=== PATIENT | female | born 1985 | race African-American/Black ===

== ENCOUNTER 2016-07-04 11:48 | Emergency (ER) | payer SELFPAY ==
[2016-07-04] MEDS ORDERED: IBUPROFEN 600 MG TABLET ONE (14:15)
== END 2016-07-04 17:00 | disposition home or self-care (01) ==
LOC: ER 11:48
DX: S66.919A Strain of unspecified muscle, fascia and tendon at wrist and hand level, unspecified hand, initial encounter (principal); W22.09XA Striking against other stationary object, initial encounter
CPT/HCPCS: 99283

== ENCOUNTER 2016-08-29 19:41 | Emergency (ER) | payer SELFPAY ==
--- NOTE | 2016-08-29 22:10 | ER Document Report ---
ED General - General Information source: Patient TRAVEL OUTSIDE OF THE [place] IN LAST 30 DAYS: No - HPI Onset: Yesterday Associated symptoms: Other - see above - General Chief Complaint: Cold Symptoms Stated Complaint: COUGH/CHILLS Time Seen by Provider: 08/29/16 21:53 Notes: Patient is a 31 year old female who presents to the ED with complaints of coughing, sneezing, nasal congestion and fever with onset yesterday. Patient states she felt lightheaded earlier but no longer feels that way. Patient states she was around both her son and daughter who were sick with similar symptoms. Patient denies nausea, vomiting, diarrhea, dysuria or hematuria, ear pain or sore throat. Patient states her throat was dry and itchy. Patient denies any chance of . Patient states she has not taken anything for her fever. Patient is currently . No other concerns or complaints at this time. (KARMEN GATES) - Related Data Allergies/Adverse Reactions: latex [Latex] Allergy (Severe, Verified 02/10/16 02:00) hives & swelling Past Medical History - General Information source: Patient - Social History Smoking Status: Unknown if Ever Smoked Family History: Reviewed & Not Pertinent Patient has suicidal ideation: No Patient has homicidal ideation: No - Past Medical History Cardiac Medical History: Reports: Hx Hypertension Renal/ Medical History: Denies: Hx Peritoneal Dialysis - Immunizations Immunizations up to date: Yes Hx Diphtheria, Pertussis, Tetanus Vaccination: Yes Review of Systems - Review of Systems Constitutional: See HPI, Fever EENT: See HPI, Nose congestion. denies: Ear pain, Throat pain - dry and itchy throat Cardiovascular: No symptoms reported Respiratory: See HPI, Cough Gastrointestinal: See HPI. denies: Diarrhea, Nausea, Vomiting Genitourinary: See HPI. denies: Dysuria, Hematuria Female Genitourinary: No symptoms reported Musculoskeletal: No symptoms reported Skin: No symptoms reported Hematologic/Lymphatic: No symptoms reported Neurological/Psychological: No symptoms reported Physical Exam - General General appearance: Appears well, Alert In distress: None - HEENT Head: Normocephalic, Atraumatic Eyes: Normal Extraocular movements intact: Yes Pupils: PERRL Ears: Normal Tympanic membrane: Normal Pharynx: Normal - Respiratory Respiratory status: No respiratory distress Breath sounds: Normal - Cardiovascular Rhythm: Regular Heart sounds: Normal auscultation Murmur: Yes - slight - Abdominal Inspection: Normal Distension: No distension - Back Back: Normal - Extremities General upper extremity: Normal inspection, Normal ROM General lower extremity: Normal inspection, Normal ROM - Neurological Neuro grossly intact: Yes Cognition: Normal Orientation: AAOx4 Jody Coma Scale Eye Opening: Spontaneous [place] Coma Scale Verbal: Oriented [place] Coma Scale Motor: Obeys Commands [place] Coma Scale Total: 15 Speech: Normal - Psychological Associated symptoms: Normal affect, Normal mood - Skin Skin Temperature: Warm Skin Moisture: Dry Skin Color: Normal Course - Re-evaluation Re-evalutation: 08/30/16 05:10 Patient with cough sneezing and nasal congestion presents well-appearing nontoxic in no acute distress normal HEENT labs vitals are stable. Patient with upper respiratory illness will discharge supportive care follow-up primary care physician and discussed reasons for ED return (MELODIE ASHTON) - Vital Signs Vital signs: Temp Pulse Resp BP Pulse Ox 100.2 F 110 H 18 130/72 H 100 08/29/16 23:03 08/29/16 23:03 08/29/16 23:03 08/29/16 23:03 08/29/16 23:03 Discharge - Discharge Clinical Impression: Upper respiratory infection Qualifiers: URI type: unspecified viral URI Qualified Code(s): J06.9 - Acute upper respiratory infection, unspecified Condition: Stable Disposition: HOME, SELF-CARE Instructions: Upper Respiratory Illness ([facility]) Additional Instructions: Upper Respiratory Illness You have a viral infection of the respiratory passages -- a "cold." This common infection causes nasal congestion, drainage, and often sore throat and cough. It is caused by a virus and is highly contagious. The disease usually lasts a week or more, though the worst symptoms are usually over in 3 or 4 days. There is no "cure" for the viral infection -- it must run its course. If there is a complication, such as bacterial infection in the nose, sinuses, middle ear, or bronchial tubes, antibiotics may be required, but antibiotics won 't affect the virus. If you smoke, you should STOP!! Drink plenty of fluids. A humidifier may help. An expectorant medication or decongestant may make you more comfortable. Use acetaminophen or ibuprofen for fever or aches. See the doctor if fever persists over two or three days, if there is any significant worsening of your symptoms, or if you simply fail to improve as expected. Prescriptions: Mometasone Furoate [Nasonex] 1 spray NS Q12 #1 spray.pump Referrals: SHAUNNA TURNER MD [ACTIVE STAFF] - Follow up in 3-5 days (Call for an appointment to be seen in follow-up in 3-5 days return for increased worsening or new symptoms) Scribe Attestation: 08/29/16 22:22 I personally performed the services described in the documentation reviewed the documentation recorded by my scribe in my presence and it accurately and completely records my words and actions (MELODIE ASHTON) Scribe Documentation - Scribe Written by Maykel:: maykel Rizzo, 08/29/2016, 2219 acting as scribe for :: Calvin
[2016-08-29 23:05] VITALS: BP 130/72
[2016-08-29] MEDS ORDERED: IBUPROFEN 800 MG TABLET PO ONE (23:21)
== END 2016-08-29 23:25 | disposition home or self-care (01) ==
LOC: ER 19:41
DX: J06.9 Acute upper respiratory infection, unspecified (principal); B97.89 Other viral agents as the cause of diseases classified elsewhere; R05 Cough; R06.7 Sneezing; R09.81 Nasal congestion; R50.9 Fever, unspecified; R09.89 Other specified symptoms and signs involving the circulatory and respiratory systems; Z91.040 Latex allergy status; I10 Essential (primary) hypertension
CPT/HCPCS: 99283

== ENCOUNTER 2018-07-04 01:42 | Emergency (ER) | payer OTHER ==
[2018-07-04] MEDS ORDERED: LORAZEPAM 1 MG TABLET PO ONE (02:59)
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
[2018-07-04 03:38] LABS: ABSOLUTE EOSINOPHILS # (AUTO) 0.1 10^3/uL (0.0-0.6); ABSOLUTE LYMPHOCYTES (AUTO) 2.4 10^3/uL (0.5-4.7); ABSOLUTE MONOCYTES (AUTO) 0.3 10^3/uL (0.1-1.4); ABSOLUTE NEUT (AUTO) 2.2 10^3/uL (1.7-8.2); BASOPHILS % (AUTO) 0.8 % (0-2); EOSINOPHILS % (AUTO) 1.1 % (0-6); HEMATOCRIT 36.3 % (36.0-47.0); MEAN CORPUSCULAR HEMOGLOBIN 28.9 pg (27.0-33.4); MEAN CORPUSCULAR HGB CONC 32.9 g/dL (32.0-36.0); MEAN CORPUSCULAR VOLUME 88 fl (80-97); MONOCYTES % (AUTO) 5.5 % (3-13); PLATELET COUNT 325 10^3/uL (150-450); RED BLOOD COUNT 4.14 10^6/uL (3.72-5.28); RED CELL DISTRIBUTION WIDTH 14.6 % (11.5-14.0); SEGMENTED NEUTROPHILS % (AUTO) 44.6 % (42-78); TOTAL CELLS COUNTED % (AUTO) 100 %; WHITE BLOOD COUNT 4.9 10^3/uL (4.0-10.5)
[2018-07-04 04:05] LABS: ALANINE AMINOTRANSFERASE 19 U/L (9-52); ALBUMIN 4.5 g/dL (3.5-5.0); ALKALINE PHOSPHATASE 62 U/L (38-126); ANION GAP 13 (5-19); ASPARTATE AMINO TRANSFERASE 27 U/L (14-36); BILIRUBIN,DIRECT 0.2 mg/dL (0.0-0.4); BILIRUBIN,TOTAL 0.3 mg/dL (0.2-1.3); BLOOD UREA NITROGEN 10 mg/dL (7-20); CALCIUM 9.6 mg/dL (8.4-10.2); CARBON DIOXIDE 23 mmol/L (22-30); CHLORIDE 110 mmol/L (98-107); GLUCOSE 101 mg/dL (75-110); POTASSIUM 4.8 mmol/L (3.6-5.0); SODIUM 145.8 mmol/L (137-145); TOTAL PROTEIN 8.2 g/dL (6.3-8.2)
[2018-07-04] MEDS ORDERED: PROMETHAZINE HCL 25 MG TABLET PO ONE (04:52)
[2018-07-04] MEDS ORDERED: LEVONORGESTREL 1.5 MG TABLET (1 TAB/ER-USE) PO ONE (04:52)
[2018-07-04] MEDS ORDERED: AZITHROMYCIN 1 GM SUSP PACKET PO ONE (04:52)
[2018-07-04] MEDS ORDERED: CEFTRIAXONE INJ 250 MG VIAL IM ONE (04:53)
[2018-07-04] MEDS ORDERED: METRONIDAZOLE 500 MG TABLET PO ONE (04:53)
[2018-07-04] MEDS ORDERED: LIDOCAINE 1% INJ-PF (10 MG/ML) 30 ML SDV ONE (05:06)
[2018-07-04 05:15] LABS: RBCS (WET MOUNT) FEW RBCS SEEN; T.VAGINALIS (WET MOUNT) NO TRICHOMONAS SEEN; WBCS (WET MOUNT) 2+ WBCS SEEN; YEAST (WET MOUNT) NO YEAST SEEN
[2018-07-04] MEDS ORDERED: ONDANSETRON 4 MG TAB.RAPDIS PO ONE (05:32)
[2018-07-04] MEDS ORDERED: ONDANSETRON 4 MG TAB.RAPDIS ONE (05:33)
[2018-07-04 06:39] LABS: CHLAM PCR DETECTED (NOT DETECT); GON PCR NOT DETECTED (NOT DETECT)
--- NOTE | 2018-07-04 06:58 | RADIOLOGY REPORT (SQ) ---
EXAM DESCRIPTION: XR HAND 3 OR MORE VIEWS right COMPLETED DATE/TME: 07/04/2018 00:00 CLINICAL HISTORY: 33 years, Female, pain and swelling COMPARISON: None. FINDINGS: No fracture or dislocation. Soft tissues are unremarkable. IMPRESSION: No acute abnormality.
[2018-07-04 07:00] VITALS: BP 121/65
[2018-07-05 06:38] LABS: HEPATITIS A AB IGM Negative (Negative); HEPATITIS B CORE AB IGM Negative (Negative); HEPATITS B SURFACE ANTIGEN Negative (Negative)
[2018-07-06 19:11] LABS: HEPATITIS C VIRUS ANTIBODY <0.1 s/co ratio (0.0-0.9)
== END 2018-07-04 07:06 | disposition home or self-care (01) ==
LOC: ER 01:42
DX: T74.21XA Adult sexual abuse, confirmed, initial encounter (principal); K62.89 Other specified diseases of anus and rectum; A74.9 Chlamydial infection, unspecified; M79.641 Pain in right hand; X58.XXXA Exposure to other specified factors, initial encounter; F17.210 Nicotine dependence, cigarettes, uncomplicated
CPT/HCPCS: 99406; 99285; 96372; 36415; 87210; 85025; 86592; 80053; 86701; 87491; 87591; 80074; 73130; A9270; S0119; Q0144; J0696

== ENCOUNTER 2018-09-02 12:48 | Emergency (ER) | payer SELFPAY ==
[2018-09-02 12:56] VITALS: BP 127/61
[2018-09-02] MEDS ORDERED: IBUPROFEN 800 MG TABLET PO ONE (13:47)
[2018-09-02] MEDS ORDERED: ONDANSETRON 4 MG TAB.RAPDIS PO ONE (13:47)
--- NOTE | 2018-09-02 13:52 | ER Document Report ---
ED General - General Chief Complaint: Headache Stated Complaint: HEADACHE, DIZZY Time Seen by Provider: 09/02/18 13:43 Mode of Arrival: Ambulatory Information source: Patient Notes: This 33-year-old female presents emergency department with complaints of headache dizziness that comes and goes and vomiting once. Patient reports she woke up at midnight had a headache took something for it then went back to bed. When she woke up this morning to go to work at the [employer] she still had a he adache felt like dizziness. When she were arrived at work she vomited one time. Patient reports she still has a frontal headache. Denies fever diarrhea. Reports she lives at home with her kids and they are not sick. Denies history of migraines. TRAVEL OUTSIDE OF THE [place] IN LAST 30 DAYS: No - HPI Onset: This morning Onset/Duration: Sudden Quality of pain: Pressure Pain Level: 4 Associated symptoms: Vomiting Exacerbated by: Denies Relieved by: Denies Similar symptoms previously: Yes Recently seen / treated by doctor: No - Related Data Allergies/Adverse Reactions: latex [Latex] Allergy (Severe, Verified 09/02/18 13:41) hives & swelling Past Medical History - General Information source: Patient Last Menstrual Period: july - Social History Smoking Status: Current Some Day Smoker Cigarette use (# per day): Yes Chew tobacco use (# tins/day): No Frequency of alcohol use: None Drug Abuse: None Occupation: [employer] Lives with: Family Family History: Reviewed & Not Pertinent Patient has suicidal ideation: No Patient has homicidal ideation: No - Past Medical History Cardiac Medical History: Reports: Hx Hypertension Renal/ Medical History: Denies: Hx Peritoneal Dialysis Surgical Hx: Negative - Immunizations Immunizations up to date: Yes Hx Diphtheria, Pertussis, Tetanus Vaccination: Yes Review of Systems - Review of Systems Notes: Review HPI for review of systems., All other systems negative Physical Exam - Vital signs Vitals: Temp Pulse Resp BP Pulse Ox 97.9 F 96 16 127/61 H 100 09/02/18 12:55 09/02/18 12:55 09/02/18 12:55 09/02/18 12:55 09/02/18 12:55 - Notes Notes: PHYSICAL EXAMINATION: GENERAL: Well-appearing and in no acute distress HEAD: Atraumatic, normocephalic. EYES: Pupils equal round extraocular movements intact, sclera anicteric, conjunctiva are normal. ENT: nares patent, . Moist mucous membranes. NECK: Normal range of motion, supple without lymphadenopathy LUNGS: CTAB and equal. No wheezes rales or rhonchi. HEART: Regular rate and rhythm without murmurs ABDOMEN: Soft, no tenderness. No guarding, no rebound EXTREMITIES: Normal range of motion, no pitting edema. No cyanosis. NEUROLOGICAL: Cranial nerves grossly intact. Normal sensory/motor exams. PSYCH: Normal mood, normal affect. SKIN: Warm, Dry, normal turgor, no rashes or lesions noted Course - Re-evaluation Re-evalutation: 09/02/18 15:14 Labs unremarkable UA shows moderate leukocytes no blood. Patient will be treated for UTI with Macrobid. She was instructed on plan of care medications. Instructed follow-up with her primary care for recheck. Dictation of this chart was performed using voice recognition software; therefore, there may be some unintended grammatical errors. 09/02/18 14:11 09/02/18 14:11 MCV 88 fl (80-97) 09/02/18 14:11 MCH 28.7 pg (27.0-33.4) 09/02/18 14:11 MCHC 32.5 g/dL (32.0-36.0) 09/02/18 14:11 RDW 16.0 % (11.5-14.0) H 09/02/18 14:11 Seg Neutrophils % 53.2 % (42-78) 09/02/18 14:11 Lymphocytes % 38.9 % (13-45) 09/02/18 14:11 Monocytes % 5.9 % (3-13) 09/02/18 14:11 Eosinophils % 0.9 % (0-6) 09/02/18 14:11 Basophils % 1.1 % (0-2) 09/02/18 14:11 Absolute Neutrophils 3.2 10^3/uL (1.7-8.2) 09/02/18 14:11 Absolute Lymphocytes 2.3 10^3/uL (0.5-4.7) 09/02/18 14:11 Absolute Monocytes 0.4 10^3/uL (0.1-1.4) 09/02/18 14:11 Absolute Eosinophils 0.1 10^3/uL (0.0-0.6) 09/02/18 14:11 Absolute Basophils 0.1 10^3/uL (0.0-0.2) 09/02/18 14:11 Chloride 105 mmol/L (98-107) 09/02/18 14:11 Carbon Dioxide 26 mmol/L (22-30) 09/02/18 14:11 Anion Gap 8 (5-19) 09/02/18 14:11 Est GFR ( Amer) > 60 (>60) 09/02/18 14:11 Est GFR (Non-Af Amer) > 60 (>60) 09/02/18 14:11 Glucose 84 mg/dL (75-110) 09/02/18 14:11 Calcium 9.0 mg/dL (8.4-10.2) 09/02/18 14:11 Total Bilirubin 0.5 mg/dL (0.2-1.3) 09/02/18 14:11 AST 29 U/L (14-36) 09/02/18 14:11 ALT 23 U/L (9-52) 09/02/18 14:11 Alkaline Phosphatase 60 U/L (38-126) 09/02/18 14:11 Total Protein 7.7 g/dL (6.3-8.2) 09/02/18 14:11 Albumin 4.3 g/dL (3.5-5.0) 09/02/18 14:11 Serum HCG, Qual NEGATIVE (NEGATIVE) 09/02/18 14:11 Urine Color YELLOW 09/02/18 14:11 Urine Appearance SLIGHTLY-CLOUDY 09/02/18 14:11 Urine pH 6.0 (5.0-9.0) 09/02/18 14:11 Ur Specific [place] 1.017 09/02/18 14:11 Urine Protein NEGATIVE mg/dL (NEGATIVE) 09/02/18 14:11 Urine Glucose (UA) NEGATIVE mg/dL (NEGATIVE) 09/02/18 14:11 Urine Ketones NEGATIVE mg/dL (NEGATIVE) 09/02/18 14:11 Urine Blood NEGATIVE (NEGATIVE) 09/02/18 14:11 Urine Nitrite NEGATIVE (NEGATIVE) 09/02/18 14:11 Ur Leukocyte Esterase MODERATE (NEGATIVE) H 09/02/18 14:11 Urine WBC (Auto) 12 /HPF 09/02/18 14:11 Urine RBC (Auto) 2 /HPF 09/02/18 14:11 09/02/18 16:07 - Vital Signs Vital signs: Temp Pulse Resp BP Pulse Ox 97.9 F 96 16 127/61 H 100 09/02/18 12:55 09/02/18 12:55 09/02/18 12:55 09/02/18 12:55 09/02/18 12:55 - Laboratory Result Diagrams: 09/02/18 14:11 09/02/18 14:11 Laboratory results interpreted by me: 09/02/18 09/02/18 14:11 14:11 Hgb 11.8 L RDW 16.0 H Urine Urobilinogen 2.0 H Ur Leukocyte Esterase MODERATE H Discharge - Discharge Clinical Impression: Headache Qualifiers: Headache type: unspecified Headache chronicity pattern: unspecified pattern Nausea & vomiting Qualifiers: Vomiting type: unspecified Vomiting Intractability: non-intractable Qualified Code(s): R11.2 - Nausea with vomiting, unspecified UTI (urinary tract infection) Qualifiers: Urinary tract infection type: site unspecified Hematuria presence: without hematuria Qualified Code(s): N39.0 - Urinary tract infection, site not specified Condition: Stable Disposition: HOME, SELF-CARE Instructions: Antinausea Medication ([facility]), Nitrofurantoin ([facility]), Urinary Tract Infection ([facility]), Vomiting ([facility]) Additional Instructions: *You have been evaluated for headache, vomiting, UTI *Take medication as prescribed *Push fluids *Monitor your temperature take Tylenol Motrin as indicated *Follow up with your primary care provider *Plan urine recheck in one week *Return to ED for worsening condition, changes, needs Prescriptions: Nitrofurantoin/Nitrofuran Mac [Macrobid 100 mg Capsule] 100 mg PO BID #20 capsule Forms: Return to Work
[2018-09-02 14:25] LABS: ABSOLUTE BASOPHILS # (AUTO) 0.1 10^3/uL (0.0-0.2); ABSOLUTE EOSINOPHILS # (AUTO) 0.1 10^3/uL (0.0-0.6); ABSOLUTE LYMPHOCYTES (AUTO) 2.3 10^3/uL (0.5-4.7); ABSOLUTE MONOCYTES (AUTO) 0.4 10^3/uL (0.1-1.4); ABSOLUTE NEUT (AUTO) 3.2 10^3/uL (1.7-8.2); BASOPHILS % (AUTO) 1.1 % (0-2); EOSINOPHILS % (AUTO) 0.9 % (0-6); HEMATOCRIT 36.4 % (36.0-47.0); HEMOGLOBIN 11.8 g/dL (12.0-15.5); LYMPHOCYTES % (AUTO) 38.9 % (13-45); MEAN CORPUSCULAR HEMOGLOBIN 28.7 pg (27.0-33.4); MEAN CORPUSCULAR HGB CONC 32.5 g/dL (32.0-36.0); MEAN CORPUSCULAR VOLUME 88 fl (80-97); MONOCYTES % (AUTO) 5.9 % (3-13); PLATELET COUNT 259 10^3/uL (150-450); RED BLOOD COUNT 4.13 10^6/uL (3.72-5.28); SEGMENTED NEUTROPHILS % (AUTO) 53.2 % (42-78); TOTAL CELLS COUNTED % (AUTO) 100 %
[2018-09-02 14:28] LABS: APPEARANCE,URINE SLIGHTLY-CLOUDY; BILIRUBIN,URINE NEGATIVE (NEGATIVE); COLOR,URINE YELLOW; GLUCOSE, URINE NEGATIVE (NEGATIVE); KETONES,URINE NEGATIVE (NEGATIVE); LEUKOCYTE ESTERASE,URINE MODERATE (NEGATIVE); NITRITE,URINE NEGATIVE (NEGATIVE); PROTEIN,URINE NEGATIVE (NEGATIVE); URINE SPECIFIC GRAVITY 1.017
[2018-09-02 14:51] LABS: ALANINE AMINOTRANSFERASE 23 U/L (9-52); ALBUMIN 4.3 g/dL (3.5-5.0); ALKALINE PHOSPHATASE 60 U/L (38-126); ANION GAP 8 (5-19); ASPARTATE AMINO TRANSFERASE 29 U/L (14-36); BILIRUBIN,DIRECT 0.2 mg/dL (0.0-0.4); BILIRUBIN,TOTAL 0.5 mg/dL (0.2-1.3); BLOOD UREA NITROGEN 12 mg/dL (7-20); CARBON DIOXIDE 26 mmol/L (22-30); CHLORIDE 105 mmol/L (98-107); GLUCOSE 84 mg/dL (75-110); POTASSIUM 3.8 mmol/L (3.6-5.0); SODIUM 138.7 mmol/L (137-145); TOTAL PROTEIN 7.7 g/dL (6.3-8.2)
== END 2018-09-02 15:30 | disposition home or self-care (01) ==
LOC: ER 12:48
DX: R51 Headache (principal); N39.0 Urinary tract infection, site not specified; R42 Dizziness and giddiness; I10 Essential (primary) hypertension; F17.210 Nicotine dependence, cigarettes, uncomplicated; R11.2 Nausea with vomiting, unspecified; Z91.040 Latex allergy status
CPT/HCPCS: 99284; 36415; 84703; 85025; 80053; 81001; S0119

== ENCOUNTER 2019-01-08 18:55 | Emergency (ER) | payer BC ==
--- NOTE | 2019-01-08 19:36 | ER Document Report ---
ED Medical Screen (RME) - General Chief Complaint: Abdominal Pain Stated Complaint: HEADACHE,ABDOMINAL PAIN,NAUSEA Time Seen by Provider: 01/08/19 19:35 TRAVEL OUTSIDE OF THE [place] IN LAST 30 DAYS: No - HPI Notes: 01/08/19 19:35 Patient is a 33-year-old female who presents complaining of lower pelvic pain, cramping, vaginal spotting, nausea and vomiting over the past couple days. She is otherwise urinating normally and having normal bowel movements. No fever, chest pain, shortness of breath. I have treated and performed a rapid initial assessment of this patient. A comprehensive ED assessment and evaluation of the patient, analysis of test results and completion of medical decision making process will be conducted by additional ED providers. PHYSICAL EXAMINATION: GENERAL: Well-appearing, well-nourished and in no acute distress. A&Ox4. Answers questions appropriately. Abdomen: Limited exam of triage, but does have some mild tenderness to lower pelvic area. - Related Data Allergies/Adverse Reactions: latex [Latex] Allergy (Severe, Verified 01/08/19 19:34) hives & swelling statins Allergy (Mild, Uncoded 01/08/19 19:34) joint pain Past Medical History - Past Medical History Cardiac Medical History: Reports: Hx Hypertension Renal/ Medical History: Denies: Hx Peritoneal Dialysis - Immunizations Immunizations up to date: Yes Hx Diphtheria, Pertussis, Tetanus Vaccination: Yes Physical Exam - Vital signs Vitals: Temp Pulse Resp BP Pulse Ox 98.1 F 91 16 143/70 H 100 01/08/19 19:05 01/08/19 19:05 01/08/19 19:05 01/08/19 19:05 01/08/19 19:05 Course - Vital Signs Vital signs: Temp Pulse Resp BP Pulse Ox 98.1 F 91 16 143/70 H 100 01/08/19 19:05 01/08/19 19:05 01/08/19 19:05 01/08/19 19:05 01/08/19 19:05
[2019-01-08] MEDS ORDERED: ONDANSETRON HCL INJ/PF 4 MG/2 ML SDV IV ONE (19:37)
[2019-01-08] MEDS ORDERED: NORMAL SALINE 1000 ML 1,000 ML IV ONE (19:37)
[2019-01-08 20:24] LABS: ABSOLUTE BASOPHILS # (AUTO) 0.1 10^3/uL (0.0-0.2); ABSOLUTE EOSINOPHILS # (AUTO) 0.1 10^3/uL (0.0-0.6); ABSOLUTE LYMPHOCYTES (AUTO) 2.2 10^3/uL (0.5-4.7); ABSOLUTE MONOCYTES (AUTO) 0.4 10^3/uL (0.1-1.4); ABSOLUTE NEUT (AUTO) 3.2 10^3/uL (1.7-8.2); BASOPHILS % (AUTO) 0.9 % (0-2); HEMATOCRIT 34.1 % (36.0-47.0); HEMOGLOBIN 11.6 g/dL (12.0-15.5); LYMPHOCYTES % (AUTO) 37.2 % (13-45); MEAN CORPUSCULAR HEMOGLOBIN 30.2 pg (27.0-33.4); MEAN CORPUSCULAR HGB CONC 33.9 g/dL (32.0-36.0); MEAN CORPUSCULAR VOLUME 89 fl (80-97); MONOCYTES % (AUTO) 7.5 % (3-13); PLATELET COUNT 346 10^3/uL (150-450); RED BLOOD COUNT 3.83 10^6/uL (3.72-5.28); RED CELL DISTRIBUTION WIDTH 15.3 % (11.5-14.0); SEGMENTED NEUTROPHILS % (AUTO) 53.4 % (42-78); TOTAL CELLS COUNTED % (AUTO) 100 %
[2019-01-08 20:41] LABS: ALBUMIN 4.4 g/dL (3.5-5.0); ALKALINE PHOSPHATASE 50 U/L (38-126); ANION GAP 10 (5-19); ASPARTATE AMINO TRANSFERASE 20 U/L (14-36); BILIRUBIN,DIRECT 0.1 mg/dL (0.0-0.4); BILIRUBIN,TOTAL 0.3 mg/dL (0.2-1.3); BLOOD UREA NITROGEN 11 mg/dL (7-20); CALCIUM 9.5 mg/dL (8.4-10.2); CARBON DIOXIDE 26 mmol/L (22-30); CHLORIDE 102 mmol/L (98-107); GLUCOSE 93 mg/dL (75-110); POTASSIUM 3.9 mmol/L (3.6-5.0); TOTAL PROTEIN 7.8 g/dL (6.3-8.2)
[2019-01-08 21:00] LABS: APPEARANCE,URINE CLEAR; BILIRUBIN,URINE NEGATIVE (NEGATIVE); COLOR,URINE YELLOW; GLUCOSE, URINE NEGATIVE (NEGATIVE); KETONES,URINE NEGATIVE (NEGATIVE); PROTEIN,URINE NEGATIVE (NEGATIVE); URINE SPECIFIC GRAVITY 1.017
--- NOTE | 2019-01-08 21:29 | RADIOLOGY REPORT (SQ) ---
US PELVIS EXAM DATE: 01/08/2019 7:36 PM NURSE CARE MANAGER HISTORY: Early . Pelvic pain. COMPARISON: None. TECHNIQUE: Grayscale, color Doppler, and spectral Doppler ultrasound images of the pelvis were obtained. FINDINGS: There is an intrauterine gestational sac and yolk sac without pole seen. There is a possible adjacent subchorionic hematoma. Both ovaries are normal in size and contain normal follicles, with the right ovary measuring 4.1 cm and the left ovary measuring 3.3 cm. There is a 2.5 cm right ovarian anechoic cyst. Normal color Doppler blood flow is seen in both ovaries. IMPRESSION: 1. Intrauterine gestational sac and yolk sac. No pole is seen at this time. Findings may represent early . Recommend short-term follow-up ultrasound imaging. 2. Small adjacent subchorionic hemorrhage; attention on follow-up imaging is suggested.
--- NOTE | 2019-01-08 21:31 | ER Document Report ---
ED GI/ - General Chief Complaint: Abdominal Pain Stated Complaint: HEADACHE,ABDOMINAL PAIN,NAUSEA Time Seen by Provider: 01/08/19 19:35 Primary Care Provider: [facility] [Provider Group] - Follow up in 3-5 days [facility] [NO LOCAL MD] - Follow up in 3-5 days Notes: Patient is a 33-year-old female that comes emergency department for chief complaint of 2 to 3 days of lower pelvic pain on both sides, cramping, occasional vaginal spotting, nausea, and she vomited once earlier today. She also reports a whitish vaginal discharge. Patient denies dysuria, fever, flank pain, abnormal bowel movements. She denies any other complaints. LMP about a month ago. TRAVEL OUTSIDE OF THE [place] IN LAST 30 DAYS: No - Related Data Allergies/Adverse Reactions: latex [Latex] Allergy (Severe, Verified 01/08/19 19:34) hives & swelling Past Medical History - General Information source: Patient - Social History Smoking Status: Current Every Day Smoker Frequency of alcohol use: None Drug Abuse: None Lives with: Family Family History: Reviewed & Not Pertinent Patient has suicidal ideation: No Patient has homicidal ideation: No - Past Medical History Cardiac Medical History: Reports: Hx Hypertension Renal/ Medical History: Denies: Hx Peritoneal Dialysis Surgical Hx: Negative - Immunizations Immunizations up to date: Yes Hx Diphtheria, Pertussis, Tetanus Vaccination: Yes Review of Systems - Review of Systems Constitutional: No symptoms reported EENT: No symptoms reported Cardiovascular: No symptoms reported Respiratory: No symptoms reported Gastrointestinal: See HPI Genitourinary: See HPI Female Genitourinary: See HPI Musculoskeletal: No symptoms reported Skin: No symptoms reported Hematologic/Lymphatic: No symptoms reported Neurological/Psychological: No symptoms reported Physical Exam - Vital signs Vitals: Temp Pulse Resp BP Pulse Ox 98.1 F 91 16 143/70 H 100 01/08/19 19:05 01/08/19 19:05 01/08/19 19:05 01/08/19 19:05 01/08/19 19:05 - Notes Notes: GENERAL: Alert, interacts well. No acute distress. HEAD: Normocephalic, atraumatic. EYES: Pupils equal, round, and reactive to light. Extraocular movements intact. ENT: Oral mucosa moist, tongue midline. Oropharynx unremarkable. Airway patent. NECK: Full range of motion. Supple. Trachea midline. LUNGS: Clear to auscultation bilaterally, no wheezes, rales, or rhonchi. No respiratory distress. HEART: Regular rate and rhythm. No murmur ABDOMEN: There is mild generalized lower abdominal tenderness, upper abdomen benign, no guarding or rigidity. GENITOURINARY: External exam unremarkable, speculum exam shows no current bleeding but does show a moderate amount of vaginal discharge. No noted cervic al motion tenderness. Exam performed with Kaye CROWLEY at bedside. EXTREMITIES: Moves all 4 extremities spontaneously. No edema, normal radial and dorsalis pedis pulses bilaterally. No cyanosis. BACK: no cervical, thoracic, lumbar midline tenderness. No saddle anesthesia, normal distal neurovascular exam. Moves all extremities in full range of motion. NEUROLOGICAL: Alert and oriented x3. Normal speech. Cranial nerves II through XII grossly intact. PSYCH: Normal affect, normal mood. SKIN: Warm, dry, normal turgor. No rashes or lesions noted. Course - Re-evaluation Re-evalutation: Patient is smiling, talkative, well-appearing. She has mild lower abdominal/pelvic tenderness without guarding. Urinalysis unremarkable, CBC, sara hector unremarkable, hCG is positive and elevated at greater than 4800. RhoGam is not indicated. Ultrasound showing possible intrauterine which is early. No concerning findings otherwise. Pelvic exam showing vaginal discharge but no cervical motion tenderness. Positive for trichomonas, remaining tests are pending. Patient will be treated for trichomonas with Flagyl, treated for potential pelvic infection/STD with Rocephin and azithromycin, discussed the importance of apartment being treated, discussed the importance of follow-up. I discussed all patient's details in regards to the , discussed close follow-up and return precautions. Patient states appreciation and agreement. Stable at time of discharge. - Vital Signs Vital signs: Temp Pulse Resp BP Pulse Ox 98.4 F 74 16 113/59 L 98 01/08/19 23:57 01/08/19 23:57 01/08/19 23:57 01/08/19 23:57 01/08/19 23:57 - Laboratory Result Diagrams: 01/08/19 19:46 01/08/19 19:46 Laboratory results interpreted by me: 01/08/19 01/08/19 01/08/19 19:40 19:46 19:46 Hgb 11.6 L Hct 34.1 L RDW 15.3 H Beta HCG, Quant 4887.40 H Urine Urobilinogen 2.0 H Leukocyte Esterase Rfl TRACE H Urine HCG, Qual POSITIVE H Chlamydia DNA (PCR) 01/08/19 22:42 Hgb Hct RDW Beta HCG, Quant Urine Urobilinogen Leukocyte Esterase Rfl Urine HCG, Qual Chlamydia DNA (PCR) DETECTED H Discharge - Discharge Clinical Impression: Vaginal bleeding affecting early , Vaginal discharge, Pelvic cramping Condition: Stable Disposition: HOME, SELF-CARE Additional Instructions: Your work-up shows indicates a in the uterus which appears to be early. Recommendation is close follow-up with the referral for additional testing and monitoring. It is possible that you will develop a miscarriage, have increased bleeding and cramping, although this is not definite. You also have a small subchronic hemorrhage as we discussed, I recommend pelvic rest (no significant exercise, lifting, or sexual intercourse until symptoms resolve). You have been diagnosed with trichomonas, and STD. You have been started on antibiotics, complete antibiotics as prescribed. Return if you worsen including increased pain, fever, vomiting, heavy bleeding, dizziness, passing out, or any other concerning symptoms. Prescriptions: Metronidazole [Flagyl 500 mg Tablet] 500 mg PO BID 7 Days #14 tablet Forms: Return to Work [facility] [NO LOCAL MD] - Follow up in 3-5 days [facility] [Provider Group] - Follow up in 3-5 days
[2019-01-08 23:01] LABS: BACTERIA (WET MOUNT) 4+ BACTERIA SEEN; RBCS (WET MOUNT) 1+ RBCS SEEN; T.VAGINALIS (WET MOUNT) TRICHOMONAS SEEN; WBCS (WET MOUNT) 2+ WBCS SEEN; YEAST (WET MOUNT) NO YEAST SEEN
[2019-01-08 23:02] LABS: EPITHELIALS (WET MOUNT) 3+ EPITHELIALS SEEN
[2019-01-08] MEDS ORDERED: ACETAMINOPHEN 325 MG TABLET PO ONE (23:26)
[2019-01-08] MEDS ORDERED: METRONIDAZOLE 500 MG TABLET PO ONE (23:26)
[2019-01-08] MEDS ORDERED: LIDOCAINE 1% INJ-PF (10 MG/ML) 30 ML SDV INJ ONE (23:27)
[2019-01-08] MEDS ORDERED: AZITHROMYCIN 250 MG TABLET PO ONE (23:27)
[2019-01-08] MEDS ORDERED: CEFTRIAXONE INJ 250 MG VIAL IM ONE (23:27)
[2019-01-09 00:27] LABS: CHLAM PCR DETECTED (NOT DETECT)
[2019-01-09 00:31] VITALS: BP 113/59
== END 2019-01-09 00:20 | disposition home or self-care (01) ==
LOC: ER 18:55
DX: O46.8X9 Other antepartum hemorrhage, unspecified trimester (principal); O98.819 Other maternal infectious and parasitic diseases complicating pregnancy, unspecified trimester; A59.9 Trichomoniasis, unspecified; O26.899 Other specified pregnancy related conditions, unspecified trimester; R10.2 Pelvic and perineal pain; N89.8 Other specified noninflammatory disorders of vagina; O21.9 Vomiting of pregnancy, unspecified; O16.9 Unspecified maternal hypertension, unspecified trimester; O99.330 Smoking (tobacco) complicating pregnancy, unspecified trimester; F17.200 Nicotine dependence, unspecified, uncomplicated; Z3A.00 Weeks of gestation of pregnancy not specified; Z91.040 Latex allergy status
CPT/HCPCS: 99284; 96372; 96361; 96374; 86900; 86901; 36415; 87086; 87210; 84702; 85025; 81025; 80053; 81001; 87491; 87591; 76817; 93976; J3490; J2405; J7030; J0696

== ENCOUNTER 2019-06-07 10:03 | Emergency (ER) | payer BC, MEDICAID ==
[2019-06-07] MEDS ORDERED: NORMAL SALINE 1000 ML 1,000 ML IV ONE (10:22)
--- NOTE | 2019-06-07 10:23 | ER Document Report ---
ED GI/ - General Chief Complaint: Constipation Stated Complaint: ABDOMINAL PAIN/CONSTIPATION Time Seen by Provider: 06/07/19 10:13 Primary Care Provider: [facility] [Provider Group] - Follow up as needed Mode of Arrival: Ambulatory Information source: Patient Notes: 34-year-old female presented to ED for complaint of severe pressure in her rectal area. She states she has not had a bowel movement in 2 to 3 days and she is taken multiple doses of magnesia and Colace. She states she is 6 months and she does carry her child low according to her last ultrasound. She states also her ultrasound showed that the placenta was very close to the cervix. We will get blood and urine ultrasound and IV fluids before treating constipation due to her history. TRAVEL OUTSIDE OF THE [place] IN LAST 30 DAYS: No - HPI Patient complains to provider of: - 6 months, Other - She has a lot of pressure in her rectum Onset: Yesterday Timing/Duration: Gradual, Persistent, Worse Quality of pain: Pressure Severity at maximum: Moderate Severity in ED: Moderate Location: Pelvis, Rectal Menstrual period history: : 5 Exacerbated by: Denies Relieved by: Denies Similar symptoms previously: Yes Recently seen / treated by doctor: Yes - Related Data Allergies/Adverse Reactions: latex [Latex] Allergy (Severe, Verified 01/08/19 19:34) hives & swelling Home Medications: iron. colace. milk of mag Past Medical History - General Information source: Patient - Social History Smoking Status: Current Every Day Smoker Cigarette use (# per day): Yes - Pack per day Smoking Education Provided: Yes - 4 minutes Lives with: Family Family History: Reviewed & Not Pertinent Patient has suicidal ideation: No Patient has homicidal ideation: No - Past Medical History Cardiac Medical History: Reports: Hx Hypertension Pulmonary Medical History: Reports: None EENT Medical History: Reports: None Neurological Medical History: Reports: None Endocrine Medical History: Reports: None Renal/ Medical History: Reports: None Malignancy Medical History: Reports: None GI Medical History: Reports: None Musculoskeletal Medical History: Reports None Skin Medical History: Reports None Psychiatric Medical History: Reports: None Traumatic Medical History: Reports: None Infectious Medical History: Reports: None Surgical Hx: Negative - Immunizations Immunizations up to date: Yes Hx Diphtheria, Pertussis, Tetanus Vaccination: Yes Review of Systems - Review of Systems Constitutional: No symptoms reported EENT: No symptoms reported Cardiovascular: No symptoms reported Respiratory: No symptoms reported Gastrointestinal: Abdominal pain, Constipation, Other - History and rectal area Genitourinary: No symptoms reported Female Genitourinary: - 6 months Musculoskeletal: No symptoms reported Skin: No symptoms reported Hematologic/Lymphatic: No symptoms reported Neurological/Psychological: No symptoms reported -: Yes All other systems reviewed and negative Physical Exam - Vital signs Vitals: Temp Pulse Resp BP Pulse Ox 98.5 F 101 H 16 137/53 H 98 06/07/19 10:06 06/07/19 10:06 06/07/19 10:06 06/07/19 10:06 06/07/19 10:06 Interpretation: Normal - General General appearance: Appears well, Alert - HEENT Head: Normocephalic, Atraumatic Eyes: Normal Pupils: PERRL - Respiratory Respiratory status: No respiratory distress Chest status: Nontender Breath sounds: Normal Chest palpation: Normal - Cardiovascular Rhythm: Regular Heart sounds: Normal auscultation Murmur: No - Abdominal Inspection: Gravid female Distension: No distension Bowel sounds: Hyperactive Tenderness: Nontender Organomegaly: No organomegaly - Back Back: Normal, Nontender - Extremities General upper extremity: Normal inspection, Nontender, Normal color, Normal ROM, Normal temperature General lower extremity: Normal inspection, Nontender, Normal color, Normal ROM, Normal temperature, Normal weight bearing. No: Suzy's sign - Neurological Neuro grossly intact: Yes Cognition: Normal Orientation: AAOx4 [place] Coma Scale Eye Opening: Spontaneous Jody Coma Scale Verbal: Oriented [place] Coma Scale Motor: Obeys Commands [place] Coma Scale Total: 15 Speech: Normal Motor strength normal: LUE, RUE, LLE, RLE Sensory: Normal - Psychological Associated symptoms: Normal affect, Normal mood - Skin Skin Temperature: Warm Skin Moisture: Dry Skin Color: Normal Course - Re-evaluation Re-evalutation: 06/07/19 15:12 Discussed labs and ultrasound with VAUDEVILLE ACTOR and with patient. Patient is to follow-up with VAUDEVILLE ACTOR in about 2 weeks for her next V[employer]ILLE ACTOR scheduled visit but she is to call sooner if she does not have recent resolution to her constipation. Patient was given instructions on fleets enema now and up to 3 times in the next 3 days. She is also given instructions on MiraLAX and Colace as well as giovanni syrup if she continues to have constipation. Patient is to call VAUDEVILLE ACTOR immediately or the emergency room if she has any further complications. Patient verbalized understanding and agreement with treatment plan and patient was discharged home. - Vital Signs Vital signs: Temp Pulse Resp BP Pulse Ox 97.9 F 76 16 99/38 L 100 06/07/19 13:36 06/07/19 13:36 06/07/19 13:36 06/07/19 13:36 06/07/19 13:36 - Laboratory Result Diagrams: 06/07/19 10:34 06/07/19 10:34 Laboratory results interpreted by me: 06/07/19 06/07/19 10:34 10:34 RBC 3.55 L Hgb 10.3 L Hct 30.9 L RDW 14.2 H Sodium 133.2 L Carbon Dioxide 21 L Creatinine 0.48 L - Diagnostic Test Radiology reviewed: Image reviewed, Reports reviewed Discharge - Discharge Clinical Impression: Constipation Qualifiers: Constipation type: other constipation type Qualified Code(s): K59.09 - Other constipation Condition: Stable Disposition: HOME, SELF-CARE Additional Instructions: ABDOMINAL PAIN: There are many causes of abdominal pain. Pain can mean a serious problem requiring surgery (such as appendicitis). It can also be an innocent problem that goes away on its own (such as a viral infection). Often, time must pass to determine the cause of pain. The physician does not feel that hospitalization is necessary, at present. Things may change within the next 24 hours. Call the doctor or come back for re- examination if any problems occur, such as: (1) Pain that becomes more severe, steady, or becomes concentrated in one specific area. Also, pain that is more severe with movement or coughing. (2) Vomiting that persists or becomes more frequent. (3) Blood in the vomitus, urine, or bowel movements. Blood in the stool may have a tarry or black appearance. (4) Shaking chills or fever greater than 100 degrees F. (5) The abdomen becomes more distended or swollen. (6) Bowel movements cease. (7) Failure to improve as expected. NORMAL EXAM AND WORKUP: At this time, your examination and workup show no significant abnormality. No significant abnormal physical findings are noted. All laboratory, EKG, and imaging (x-ray, CT scans, ultrasound) studies that were ordered show no significant abnormality. Although your examination and all studies that were ordered showed no significant abnormal finding, there are no examinations and no studies that are 100% accurate. There is always the possibility that some abnormality could exist and not be detected with physical examination or within the limits and capabilities of laboratory and other studies. You should return or follow up as you were instructed on your visit today for further evaluation if your symptoms do not resolve. CONSTIPATION: Constipation is a common problem. It is especially likely as you get older. Constipation is a common cause of abdominal pain, but sometimes causes no symptoms at all. Causes of constipation include certain medications, dehydration, diets, inactivity, and low-fiber intake. Rarely, it can be a symptom of underlying disease. The physician has evaluated you for this. Avoid constipation by eating a diet high in fiber, fruits, and vegetables. Drink plenty of liquids. Get regular exercise. If possible, avoid constipating medicines like narcotic pain medication. Some vitamin tablets can cause constipation. You can use Colace 2-3 times a day, use dark Kairo syrup 2 times a day, use MiraLAX twice a day, and any other remedies that the VAUDEVILLE ACTOR instructed you. You could also use fleets enemas once a day for 2 days before we call in the VAUDEVILLE ACTOR. If you continue to be constipated please call your VAUDEVILLE ACTOR for further instructions or return to the ED. FOLLOW-UP CARE: If you have been referred to a physician for follow-up care, call the physicians office for an appointment as you were instructed or within the next two days. If you experience worsening or a significant change in your symptoms, notify the physician immediately or return to the Emergency Department at any time for re-evaluation. Referrals: [facility] [Provider Group] - Follow up as needed
[2019-06-07 10:42] LABS: ABSOLUTE BASOPHILS # (AUTO) 0.1 10^3/uL (0.0-0.2); ABSOLUTE LYMPHOCYTES (AUTO) 1.6 10^3/uL (0.5-4.7); ABSOLUTE MONOCYTES (AUTO) 0.6 10^3/uL (0.1-1.4); ABSOLUTE NEUT (AUTO) 7.9 10^3/uL (1.7-8.2); BASOPHILS % (AUTO) 0.8 % (0-2); EOSINOPHILS % (AUTO) 0.5 % (0-6); HEMATOCRIT 30.9 % (36.0-47.0); HEMOGLOBIN 10.3 g/dL (12.0-15.5); LYMPHOCYTES % (AUTO) 15.9 % (13-45); MEAN CORPUSCULAR HEMOGLOBIN 29.1 pg (27.0-33.4); MEAN CORPUSCULAR HGB CONC 33.5 g/dL (32.0-36.0); MEAN CORPUSCULAR VOLUME 87 fl (80-97); PLATELET COUNT 345 10^3/uL (150-450); RED BLOOD COUNT 3.55 10^6/uL (3.72-5.28); RED CELL DISTRIBUTION WIDTH 14.2 % (11.5-14.0); SEGMENTED NEUTROPHILS % (AUTO) 76.8 % (42-78); TOTAL CELLS COUNTED % (AUTO) 100 %; WHITE BLOOD COUNT 10.3 10^3/uL (4.0-10.5)
[2019-06-07 11:00] LABS: ALBUMIN 3.9 g/dL (3.5-5.0); ALKALINE PHOSPHATASE 88 U/L (38-126); ANION GAP 7 (5-19); ASPARTATE AMINO TRANSFERASE 25 U/L (14-36); BILIRUBIN,TOTAL 0.3 mg/dL (0.2-1.3); BLOOD UREA NITROGEN 9 mg/dL (7-20); CALCIUM 8.9 mg/dL (8.4-10.2); CARBON DIOXIDE 21 mmol/L (22-30); CHLORIDE 105 mmol/L (98-107); GLUCOSE 104 mg/dL (75-110); POTASSIUM 3.9 mmol/L (3.6-5.0); TOTAL PROTEIN 7.5 g/dL (6.3-8.2)
--- NOTE | 2019-06-07 11:49 | RADIOLOGY REPORT (SQ) ---
EXAM DESCRIPTION: U/S OB LIMITED IMAGES COMPLETED DATE/TIME: 06/07/2019 11:27 am REASON FOR STUDY: feeling pressure on buttock 6 months preg COMPARISON: None. TECHNIQUE: Limited transabdominal grayscale ultrasound for evaluation of specific requested obstetri fatuma parameters. LIMITATIONS: None. FINDINGS: CERVICAL LENGTH: 3.9 cm Closed. AVILA: 13.7 cm. FHR: 139 beats per minute. PRESENTATION: Breech. PLACENTA: Posterior, low lying without clayton previa or evidence of abruption. ANATOMY: Not assessed OTHER: Estimated weight 948 g. 48 percentile. Estimated gestational age today is 26 weeks 3 d ays, delivery date 09/10/2019. IMPRESSION: LIMITED OBSTETRICAL ULTRASOUND WITH MEASURED PARAMETERS DELINEATED ABOVE. Trimester of : Second trimester - 13 weeks 1 day to 27 weeks 6 days. TECHNICAL DOCUMENTATION: JOB ID: [id number] 2010 [employer]- All Rights Reserved Reading location - IP/workstation name: [email or web address]
[2019-06-07 13:05] LABS: APPEARANCE,URINE SLIGHTLY-CLOUDY; BILIRUBIN,URINE NEGATIVE (NEGATIVE); COLOR,URINE YELLOW; GLUCOSE, URINE NEGATIVE (NEGATIVE); KETONES,URINE NEGATIVE (NEGATIVE); PROTEIN,URINE NEGATIVE (NEGATIVE); URINE SPECIFIC GRAVITY 1.011; UROBILINOGEN,URINE NEGATIVE mg/dL (<2.0)
[2019-06-07] MEDS ORDERED: NA PHOS,M-B/NA PHOS,DI-BA (ADULT) 133 ML ENEMA PR ONE (13:30)
[2019-06-07 13:45] VITALS: BP 99/38
== END 2019-06-07 13:44 | disposition home or self-care (01) ==
LOC: ER 10:03
DX: O26.92 Pregnancy related conditions, unspecified, second trimester (principal); K59.09 Other constipation; R10.9 Unspecified abdominal pain; O99.332 Smoking (tobacco) complicating pregnancy, second trimester; F17.210 Nicotine dependence, cigarettes, uncomplicated; Z3A.24 24 weeks gestation of pregnancy; Z91.040 Latex allergy status
CPT/HCPCS: 99406; 99284; 96360; 96361; 36415; 85025; 80053; 81001; 76815; J7030

== ENCOUNTER 2019-06-09 10:19 | Emergency (ER) | payer MEDICAID ==
--- NOTE | 2019-06-09 10:29 | ER Document Report ---
ED GI/ - General Chief Complaint: Constipation Stated Complaint: CONSTIPATION Time Seen by Provider: 06/09/19 10:23 Primary Care Provider: [facility] [Provider Group] - Follow up in 3-5 days Mode of Arrival: Ambulatory Information source: Patient Notes: 34-year-old female presented to ED for complaint of severe pressure in her rectal area. She states she has not had a bowel movement and now 4 days. She states she is taken multiple doses milk of magnesia, Colace, MiraLAX, and a fleets enema with no results. She is 26 weeks 5 days . She states now she is having pain and bleeding from her rectum. She states she called the [facility] and they sent her into the emergency room. She is alert oriented respirations regular nonlabored speaking in full sentences walks with a even steady gait. TRAVEL OUTSIDE OF THE [place] IN LAST 30 DAYS: No - HPI Patient complains to provider of: , Other - Severe constipation with Onset: Other - 4 days Timing/Duration: Intermittent Quality of pain: Burning, Cramping, Sharp Severity at maximum: Moderate Severity in ED: Moderate Pain Level: 3 Location: Other - Her last LMP: He 8 weeks Associated symptoms: Other - Constipation with rectal bleeding Exacerbated by: Sitting, Movement, Walking Relieved by: Denies Similar symptoms previously: Yes Recently seen / treated by doctor: Yes - Related Data Allergies/Adverse Reactions: latex [Latex] Allergy (Severe, Verified 06/09/19 10:24) hives & swelling Past Medical History - General Information source: Patient - Social History Smoking Status: Current Every Day Smoker Cigarette use (# per day): Yes - Pack per day Smoking Education Provided: Yes - 4 days Frequency of alcohol use: None Drug Abuse: None Lives with: Family Family History: Reviewed & Not Pertinent Patient has suicidal ideation: No Patient has homicidal ideation: No - Past Medical History Cardiac Medical History: Reports: Hx Hypertension Pulmonary Medical History: Reports: None Neurological Medical History: Reports: None Endocrine Medical History: Reports: None Renal/ Medical History: Reports: None Malignancy Medical History: Reports: None GI Medical History: Reports: None Musculoskeletal Medical History: Reports None Skin Medical History: Reports None Psychiatric Medical History: Reports: None Traumatic Medical History: Reports: None Infectious Medical History: Reports: None Surgical Hx: Negative Past Surgical History: Reports: None - Immunizations Immunizations up to date: Yes Hx Diphtheria, Pertussis, Tetanus Vaccination: Yes Review of Systems - Review of Systems Constitutional: No symptoms reported EENT: No symptoms reported Cardiovascular: No symptoms reported Respiratory: No symptoms reported Gastrointestinal: Abdominal pain, Constipation, Rectal bleeding Genitourinary: No symptoms reported Female Genitourinary: Musculoskeletal: No symptoms reported Skin: No symptoms reported Hematologic/Lymphatic: No symptoms reported Neurological/Psychological: No symptoms reported -: Yes All other systems reviewed and negative Physical Exam - Vital signs Vitals: Temp Pulse Resp BP Pulse Ox 98.2 F 97 16 123/81 100 06/09/19 10:23 06/09/19 10:23 06/09/19 10:23 06/09/19 10:23 06/09/19 10:23 Interpretation: Normal - General General appearance: Appears well, Alert - HEENT Head: Normocephalic, Atraumatic Eyes: Normal Pupils: PERRL - Respiratory Respiratory status: No respiratory distress Chest status: Nontender Breath sounds: Normal Chest palpation: Normal - Cardiovascular Rhythm: Regular Heart sounds: Normal auscultation Murmur: No - Abdominal Inspection: Normal, Gravid female Distension: No distension Bowel sounds: Normal Tenderness: Nontender Organomegaly: No organomegaly - Rectal Tenderness: Yes Stool: Heme positive, Bloody Hemorrhoids: None - Back Back: Normal, Nontender - Extremities General upper extremity: Normal inspection, Nontender, Normal color, Normal ROM, Normal temperature General lower extremity: Normal inspection, Nontender, Normal color, Normal ROM, Normal temperature, Normal weight bearing. No: Suzy's sign - Neurological Neuro grossly intact: Yes Cognition: Normal Orientation: AAOx4 [place] Coma Scale Eye Opening: Spontaneous Jody Coma Scale Verbal: Oriented [place] Coma Scale Motor: Obeys Commands [place] Coma Scale Total: 15 Speech: Normal Motor strength normal: LUE, RUE, LLE, RLE Sensory: Normal - Psychological Associated symptoms: Normal affect, Normal mood - Skin Skin Temperature: Warm Skin Moisture: Dry Skin Color: Normal Course - Re-evaluation Re-evalutation: 06/09/19 12:23 After having a very large bowel movement as a result of a fleets enema patient started complaining of pelvic and vaginal pain. I did call [facility] and spoke with Dr. Wallace and she sent [facility] staff down to the emergency room to examine the patient. They stated that the cervix was closed and she was safe to go home. She states she is feeling much better now that she had a very large bowel movement. She states she knows she has more she has to pass but she is ready to go home now. She states that her pelvic pain is actually relieved some now. Patient was given instructions to return to the ED or call [facility] immediately for any pelvic or vaginal pain or any vaginal bleeding. Patient verbalized understanding and agreement with treatment plan and patient was discharged home. - Vital Signs Vital signs: Temp Pulse Resp BP Pulse Ox 98.3 F 82 18 119/62 100 06/09/19 14:07 06/09/19 14:07 06/09/19 14:07 06/09/19 14:07 06/09/19 14:07 - Laboratory Result Diagrams: 06/09/19 10:58 Laboratory results interpreted by me: 06/09/19 10:58 RBC 3.45 L Hgb 10.1 L Hct 29.8 L RDW 14.3 H Discharge - Discharge Clinical Impression: Constipation during in second trimester Condition: Stable Disposition: HOME, SELF-CARE Additional Instructions: ABDOMINAL PAIN: There are many causes of abdominal pain. Pain can mean a serious problem requiring surgery (such as appendicitis). It can also be an innocent problem that goes away on its own (such as a viral infection). Often, time must pass to determine the cause of pain. The physician does not feel that hospitalization is necessary, at present. Things may change within the next 24 hours. Call the doctor or come back for re- examination if any problems occur, such as: (1) Pain that becomes more severe, steady, or becomes concentrated in one specific area. Also, pain that is more severe with movement or coughing. (2) Vomiting that persists or becomes more frequent. (3) Blood in the vomitus, urine, or bowel movements. Blood in the stool may have a tarry or black appearance. (4) Shaking chills or fever greater than 100 degrees F. (5) The abdomen becomes more distended or swollen. (6) Bowel movements cease. (7) Failure to improve as expected. NORMAL EXAM AND WORKUP: At this time, your examination and workup show no significant abnormality. No significant abnormal physical findings are noted. All laboratory, EKG, and imaging (x-ray, CT scans, ultrasound) studies that were ordered show no significant abnormality. Although your examination and all studies that were ordered showed no significant abnormal finding, there are no examinations and no studies that are 100% accurate. There is always the possibility that some abnormality could exist and not be detected with physical examination or within the limits and capabilities of laboratory and other studies. You should return or follow up as you were instructed on your visit today for further evaluation if your symptoms do not resolve. CONSTIPATION: Constipation is a common problem. It is especially likely as you get older. Constipation is a common cause of abdominal pain, but sometimes causes no symptoms at all. Causes of constipation include certain medications, dehydration, diets, inactivity, and low-fiber intake. Rarely, it can be a symptom of underlying disease. The physician has evaluated you for this. Avoid constipation by eating a diet high in fiber, fruits, and vegetables. Drink plenty of liquids. Get regular exercise. If possible, avoid constipating medicines like narcotic pain medication. Some vitamin tablets can cause constipation. Stool softeners may be needed for difficult cases. Please use MiraLAX 1 capful twice a day for the next week. Colace can be used once or twice a day. Increase fluid intake, increase activity, increase fiber. Follow-up with [facility] if you continue to have symptoms. FOLLOW-UP CARE: If you have been referred to a physician for follow-up care, call the physicians office for an appointment as you were instructed or within the next two days. If you experience worsening or a significant change in your symptoms, notify the physician immediately or return to the Emergency Department at any time for re-evaluation. Referrals: [facility] [Provider Group] - Follow up in 3-5 days
[2019-06-09] MEDS ORDERED: NORMAL SALINE 1000 ML 1,000 ML IV ONE ×2 (10:41→12:36)
[2019-06-09] MEDS ORDERED: NA PHOS,M-B/NA PHOS,DI-BA (ADULT) 133 ML ENEMA PR ONE (10:49)
[2019-06-09 11:12] LABS: ABSOLUTE EOSINOPHILS # (AUTO) 0.1 10^3/uL (0.0-0.6); ABSOLUTE LYMPHOCYTES (AUTO) 1.8 10^3/uL (0.5-4.7); ABSOLUTE MONOCYTES (AUTO) 0.6 10^3/uL (0.1-1.4); ABSOLUTE NEUT (AUTO) 5.6 10^3/uL (1.7-8.2); BASOPHILS % (AUTO) 0.6 % (0-2); EOSINOPHILS % (AUTO) 0.7 % (0-6); HEMATOCRIT 29.8 % (36.0-47.0); HEMOGLOBIN 10.1 g/dL (12.0-15.5); MEAN CORPUSCULAR HEMOGLOBIN 29.2 pg (27.0-33.4); MEAN CORPUSCULAR HGB CONC 33.8 g/dL (32.0-36.0); MEAN CORPUSCULAR VOLUME 86 fl (80-97); MONOCYTES % (AUTO) 7.4 % (3-13); PLATELET COUNT 342 10^3/uL (150-450); RED BLOOD COUNT 3.45 10^6/uL (3.72-5.28); RED CELL DISTRIBUTION WIDTH 14.3 % (11.5-14.0); SEGMENTED NEUTROPHILS % (AUTO) 69.3 % (42-78); TOTAL CELLS COUNTED % (AUTO) 100 %; WHITE BLOOD COUNT 8.1 10^3/uL (4.0-10.5)
[2019-06-09 14:07] VITALS: BP 119/62
== END 2019-06-09 14:08 | disposition home or self-care (01) ==
LOC: ER 10:19
DX: O26.892 Other specified pregnancy related conditions, second trimester (principal); K59.00 Constipation, unspecified; K62.89 Other specified diseases of anus and rectum; R10.9 Unspecified abdominal pain; O16.2 Unspecified maternal hypertension, second trimester; O99.332 Smoking (tobacco) complicating pregnancy, second trimester; Z3A.26 26 weeks gestation of pregnancy
CPT/HCPCS: 99406; 99283; 96360; 96361; 36415; 85025; 82270; J3490; J7030

== ENCOUNTER 2019-07-29 19:24 | Inpatient (IN) | payer MEDICAID ==
[~2019-07-29 19:24] MED LIST: SUCCINYLCHOLINE CHLORIDE INJ 200 MG/10 ML VIAL ONE
[2019-07-29] MEDS ORDERED: CEFAZOLIN 1 GM/D5W RTU 2 GM/100 ML RTUPB IV ONE (19:46)
[2019-07-29] MEDS ORDERED: CITRIC ACID/SODIUM CITRATE ORAL SOLN 15 ML UDCUP ONE (19:46)
[2019-07-29] MEDS ORDERED: RINGERS SOLUTION,LACTATED 1,000 ML IV ONE (19:53)
[2019-07-29] MEDS ORDERED: MISOPROSTOL 0.2 MG TABLET ONE ×2 (19:55→21:11)
[2019-07-29] MEDS ORDERED: METHYLERGONOVINE MALEATE INJ/PF 0.2 MG/1 ML AMPULE ONE (19:55)
--- NOTE | 2019-07-29 20:05 | Admission Physical ---
Datetime Report Generated by CPN: 07/29/2019 20:05 CURRENT ADMISSION Chief Complaint: Uterine Contractions; Vaginal Bleeding Indication for Induction: Other Indication for Induction- Other: Placental abruption Admit Impression : , Intrauterine ; Active Labor; Ruptured Membranes Admit Plan: Admit to Unit; Initiate Section Protocol ALLERGIES Medication Allergies: No Medication Allergies: latex/SV/hives swellin (06/09/2019) Latex: No Latex Allergies OBSTETRICAL HISTORY : 6 Para: 4 Term: 4 : 0 SAB: 1 Livin Cesareans: 0 Depression/PP Depression: No MEDICAL HISTORY Diabetes: No Hypertension: Yes Heart Disease: No Autoimmune Disorder: No Kidney Disease: No Neuro/Epilepsy: No Psychiatric Disorders: No Hepatitis/Liver Disease: No Varicosities/Phlebitis: No Trauma/Violence : No Thyroid Dysfunction: No PHYSICAL EXAM General: Normal HEENT: Normal Neurologic: Normal Thyroid: Normal Heart: Normal Lungs: Normal Breast: Normal Back: Normal Abdomen: Normal Genitourinary Exam: Normal Extremities: Normal DTRs: Normal Pelvic Type: Adequate Vital Signs: Reviewed; Within Normal Limits VAGINAL EXAM Dilatation: 5 Effacement: 80 Station: -3 MEMBRANES Membranes: Ruptured Amniotic Fluid Color: Bloody FETUS A Monitoring: External US FHR- Baseline: 125 Variability: Moderate 6-25bpm Accelerations: 15X15 Decelerations: Variable FHR Category: Category II Presentation: Vertex Admit Comment: 34 yo at 33 wks EGA with placental abruption -NPO -TWO large bore IVs -Bolus 1 liter NS and begin 125 cc/hr -Labs with coags and type and screen w/ 2 units on hold -Good heart tones -Cervix 4-5 , feels like placenta presenting. Large clot came out with check and vagina full of blood -Hx of 4 but given abruption-plan Primary CS INFORMED CONSENT Informed Consent Obtained: Section Delivery; Risks, Benefits and Alternatives Discussed Signature: with User ID: [email or web address] : with User ID: [email or web address]
[2019-07-29] MEDS ORDERED: FENTANYL CITRATE INJ/PF 100 MCG/2 ML AMPUL IV PRN ×3 (20:39)
[2019-07-29] MEDS ORDERED: ONDANSETRON HCL INJ/PF 4 MG/2 ML SDV IV PRN (20:39)
[2019-07-29] MEDS ORDERED: DIPHENHYDRAMINE HCL 50 MG/ML VIAL IV PRN (20:39)
[2019-07-29] MEDS ORDERED: OXYCODONE-ACETAMINOPHEN 5-325 MG TABLET PO PRN ×4 (20:39→20:51)
[2019-07-29] MEDS ORDERED: MEPERIDINE HCL/PF INJ 25 MG/1 ML DISP.SYRIN IV PRN (20:39)
[2019-07-29] MEDS ORDERED: PROMETHAZINE HCL INJ 25 MG/1 ML VIAL IV PRN ×3 (20:39→20:51)
[2019-07-29] MEDS ORDERED: MORPHINE SULFATE 10 MG/ML INJ IV PRN (20:39)
[2019-07-29] MEDS ORDERED: PROPOFOL INJ 200 MG/20 ML VIAL IV ONE (20:42)
[2019-07-29] MEDS ORDERED: RINGERS SOLUTION,LACTATED 1,000 ML IV PRN (20:51)
[2019-07-29] MEDS ORDERED: OXYTOCIN/0.9 % SODIUM CHLORIDE 30 UNIT/500 ML RTUINJ IV PRN (20:51)
[2019-07-29] MEDS ORDERED: HYDROMORPHONE HCL INJ/PF 2 MG/ML AMPULE IV PRN (20:51)
[2019-07-29] MEDS ORDERED: DIPH/PERTUSS(ACELL)/TETANUS VAC/PF 0.5 ML SYR (>=10YO) IM PRN (20:51)
[2019-07-29] MEDS ORDERED: ACETAMINOPHEN 325 MG TABLET PO PRN (20:51)
[2019-07-29] MEDS ORDERED: SIMETHICONE 80 MG TAB.CHEW PO PRN (20:51)
[2019-07-29] MEDS ORDERED: MEASLES,MUMPS&RUBELLA VACC/PF 0.5 ML VIAL SUBCUT PRN (20:51)
[2019-07-29] MEDS ORDERED: FENTANYL CITRATE INJ/PF 100 MCG/2 ML AMPUL ONE (21:04)
[2019-07-29] MEDS ORDERED: OXYTOCIN 10 UNIT/ML VIAL ONE (21:04)
[2019-07-29] MEDS ORDERED: ACETAMINOPHEN 1,000 MG/100 ML RTUPB IV ONE (21:04)
[2019-07-29] MEDS ORDERED: PHENYLEPHRINE HCL INJ/PF 10 MG/1 ML SDV ONE (21:04)
[2019-07-29] MEDS ORDERED: ONDANSETRON HCL INJ/PF 4 MG/2 ML SDV ONE (21:05)
--- NOTE | 2019-07-29 21:05 | Operative Report ---
Operative Report DATE OF SURGERY: 07/29/19 PREOPERATIVE DIAGNOSIS: Intrauterine at approximately [address] acental abruption POSTOPERATIVE DIAGNOSIS: Same as above OPERATION: Primary section SURGEON: NICOLÁS WARREN ANESTHESIA: GA TISSUE REMOVED OR ALTERED: Placenta COMPLICATIONS: None ESTIMATED BLOOD LOSS: 900cc INTRAOPERATIVE FINDINGS: Uterus normal shape, firm with large clots of blood in lower uterine segment. APpeared 1/3 of placenta had abrupted. Amniotic fluid with blood noted. Baby footling breech. PROCEDURE: IV fluids: per anesthesia record Urinary output: 250 cc clear yellow urine Findings: Normal-appearing uterus -firm, bilateral fallopian tubes and ovaries normal. Placenta with visible abruption of 1/3 surface grossly. Viable female infant Position: To recovery room in stable condition Description of procedure: The patient was taken to the operating room and general anesthesia was administered and found to be adequate. She was then placed on the OR table in the supine position with a slight leftward tilt. Patient was prepped and draped in usual sterile fashion with betadine. Ancef 2 gms was given IV prior to the procedure for infection prophylaxis. Timeout was taken. A Pfannenstiel skin incision was then made approximately 3 cm above the pubic symphysis and carried down to level the rectus fascia. The rectus fascia was then nicked in the midline with a scalpel and the fascial incision was extended laterally with use of curved Garces scissors. The underlying rectus muscle was dissected off both bluntly and sharply. The rectus muscles were then split in the midline and the peritoneum was entered. The peritoneal incision was then extended by manually stretching the peritoneum. The bladder blade was positioned. A scalpel was then used in the lower uterine for the hysterotomy, slowly until amniotomy was obtained a moderate amount of bloody fluid was noted. Large clots noted in lower uterine segment. The uterine incision was then manually stretched. The was noted to be in footling breech postion. Feet delivered and then to hips. THe torso delvered to the scapula and each arm was delivered. THe body was elevated and head brought to the hysterotomy incision. Nuchal x1 noted and delivered through. The was handed off to nursery staff awaiting. The placenta was manually delivered. Using a lap gauze the uterus was cleared of all clots and debris. The uterus was then exteriorized and a bladder blade was repositioned. The uterine incision was then closed with 0 Chromic suture in a running locked fashion. A second layer of the same suture was used in a running locked imbricated fashion. The uterus was boggy and additional pitocin given. Still atonic and methergine given directly in myometrium. Became firm. THe incision was inspected and some oozing. Box stitch x 3 placed. THe incision noted to be hemostatic. The posterior aspect of the uterus was then inspected and anatomy was seen as above. The uterus was returned to its normal anatomic position within the abdominal cavity. Warm saline irrigation was used to clear all clots and debris from the abdomen. The uterine incision was inspected once more and noted to remain hemostatic. The bladder blade was removed and the peritoneum was closed with 2-0 chromic in a running fashion. The rectus muscles were then reapproximated and the rectus fascia was closed with a #1 PDS in a running fashion. The subcutaneous tissue was then inspected and any bleeding was controlled with Bovie electrocautery. The skin was then closed with 4-0 Monocryl in a running subcuticular fashion. The skin incision was then clean dried and Dermabond was applied over the skin incision. All instrument sponge and needle counts were correct x3 for the procedure the patient tolerated the procedure well. She will proceed to recovery room in stable condition
[2019-07-29] MEDS ORDERED: HYDROMORPHONE HCL INJ/PF 2 MG/ML AMPULE ONE (21:13)
[2019-07-29 21:44] LABS: ABSOLUTE BASOPHILS # (AUTO) 0.1 10^3/uL (0.0-0.2); ABSOLUTE EOSINOPHILS # (AUTO) 0.1 10^3/uL (0.0-0.6); ABSOLUTE LYMPHOCYTES (AUTO) 2.7 10^3/uL (0.5-4.7); ABSOLUTE MONOCYTES (AUTO) 1.4 10^3/uL (0.1-1.4); ABSOLUTE NEUT (AUTO) 11.9 10^3/uL (1.7-8.2); BASOPHILS % (AUTO) 0.5 % (0-2); EOSINOPHILS % (AUTO) 0.4 % (0-6); HEMATOCRIT 23.7 % (36.0-47.0); LYMPHOCYTES % (AUTO) 16.8 % (13-45); MEAN CORPUSCULAR HEMOGLOBIN 24.8 pg (27.0-33.4); MEAN CORPUSCULAR HGB CONC 31.4 g/dL (32.0-36.0); MEAN CORPUSCULAR VOLUME 79 fl (80-97); MONOCYTES % (AUTO) 8.6 % (3-13); PLATELET COUNT 270 10^3/uL (150-450); RED BLOOD COUNT 3.01 10^6/uL (3.72-5.28); RED CELL DISTRIBUTION WIDTH 17.5 % (11.5-14.0); SEGMENTED NEUTROPHILS % (AUTO) 73.7 % (42-78); TOTAL CELLS COUNTED % (AUTO) 100 %; WHITE BLOOD COUNT 16.2 10^3/uL (4.0-10.5)
[2019-07-29 21:49] LABS: FIBRINOGEN 323 mg/dL (209-497); PARTIAL THROMBOPLASTIN TIME 28.1 SEC (23.5-35.8); PROTHROMBIN TIME 14.2 SEC (11.4-15.4)
[2019-07-29 21:50] LABS: HEMOGLOBIN 7.5 g/dL (12.0-15.5)
[2019-07-29] MEDS: IBUPROFEN 800 MG TABLET PO SCH (21:50)
[2019-07-29] MEDS ORDERED: IRON SUCROSE COMPLEX INJ/PF 100 MG/5 ML SDV IV ONE (22:00)
[2019-07-30] MEDS: KETOROLAC TROMETHAMINE INJ/PF 30 MG/1 ML SDV IV SCH ×4 (04:05→13:08)
[2019-07-30] MEDS: IBUPROFEN 800 MG TABLET PO SCH ×2 (06:44→22:19)
[2019-07-30 08:15] LABS: HEMATOCRIT 19.3 % (36.0-47.0); MEAN CORPUSCULAR HEMOGLOBIN 24.8 pg (27.0-33.4); MEAN CORPUSCULAR HGB CONC 31.6 g/dL (32.0-36.0); MEAN CORPUSCULAR VOLUME 79 fl (80-97); PLATELET COUNT 227 10^3/uL (150-450); RED BLOOD COUNT 2.45 10^6/uL (3.72-5.28); RED CELL DISTRIBUTION WIDTH 17.2 % (11.5-14.0); WHITE BLOOD COUNT 17.8 10^3/uL (4.0-10.5)
[2019-07-30 08:19] LABS: HEMOGLOBIN 6.1 g/dL (12.0-15.5)
[2019-07-30] MEDS: PRENATAL VITAMIN W DHA CAPSULE PO SCH (11:32)
[2019-07-30] MEDS: DOCUSATE SODIUM 100 MG CAPSULE PO SCH ×2 (11:32→17:29)
[2019-07-30 12:10] LABS: APPEARANCE,URINE CLEAR; BILIRUBIN,URINE NEGATIVE (NEGATIVE); COLOR,URINE YELLOW; GLUCOSE, URINE NEGATIVE (NEGATIVE); KETONES,URINE NEGATIVE (NEGATIVE); LEUKOCYTE ESTERASE,URINE NEGATIVE (NEGATIVE); NITRITE,URINE NEGATIVE (NEGATIVE); PROTEIN,URINE 30 mg/dL (NEGATIVE); URINE SPECIFIC GRAVITY 1.016; UROBILINOGEN,URINE NEGATIVE mg/dL (<2.0)
[2019-07-30 12:30] LABS: URINE AMPHETAMINES SCREEN NEGATIVE; URINE BARBITURATES SCREEN NEGATIVE; URINE BENZODIAZEPINES SCREEN NEGATIVE; URINE COCAINE SCREEN NEGATIVE; URINE MARIJUANA (THC) SCREEN NEGATIVE; URINE METHADONE SCREEN NEGATIVE; URINE PHENCYCLIDINE SCREEN NEGATIVE
--- NOTE | 2019-07-30 14:26 | PDOC PROGRESS REPORT ---
Subjective-OB Progress Note for:: 07/30/19 - POD #1, pt rec'ing 2 units PRBC currently for PP anemia. Had stat last night due to uterine abruption. Pt A&O x 3, no complaints at this moment, stated was dizzy earlier today. B+, Physical Exam (OB) Vital Signs: Temp Pulse Resp BP Pulse Ox 98.6 F 76 18 142/78 H 100 07/30/19 12:58 07/30/19 12:58 07/30/19 12:58 07/30/19 12:58 07/30/19 12:58 Intake & Output 07/29/19 07/30/19 07/31/19 06:59 06:59 06:59 Intake Total 600 Output Total 800 200 Balance -800 400 - General General Appearance: Appears well, Alert In distress: None - Dressing Removed: No Closure Type: Pressure - Lochia Lochia Amount: Scant < 10 ml Lochia Color: Rubra/Red - Abdomen Description: Tender Hernia Present: No Fundal Description: Firm, Midline Fundal Height: u/u - u/2 - Respiratory Respiratory Status: No respiratory distress Breath sounds: Clear - Cardiovascular Rhythm: Regular - Abdominal Inspection: Normal Distension: No distension Tenderness: Nontender Abdominal Notes: +bowel sounds - Genitourinary Genitourinary Note: bolanos cath in place, clear lima urine. Appears adequate output - Extremities Upper extremity: Normal inspection Lower extremities: Normal inspection - Neurological Cognition: Normal Orientation: AAOx4 - Psychological Associated symptoms: Normal affect, Normal mood - Skin Skin Temperature: Warm Skin Moisture: Dry Objective-Diagnostic Laboratory: 07/30/19 07:51 07/29/19 07/29/19 07/30/19 21:09 21:09 07:51 WBC 16.2 H 17.8 H RBC 3.01 L 2.45 L Hgb 7.5 L 6.1 L Hct 23.7 L 19.3 L MCV 79 L 79 L MCH 24.8 L 24.8 L MCHC 31.4 L 31.6 L RDW 17.5 H 17.2 H Plt Count 270 227 Seg Neutrophils % 73.7 Urine Color Urine Appearance Urine pH Ur Specific Rand Urine Protein Urine Glucose (UA) Urine Ketones Urine Blood Urine Nitrite Ur Leukocyte Esterase Urine WBC (Auto) Urine RBC (Auto) Blood Type B POSITIVE Antibody Screen NEGATIVE 07/30/19 11:35 WBC RBC Hgb Hct MCV MCH MCHC RDW Plt Count Seg Neutrophils % Urine Color YELLOW Urine Appearance CLEAR Urine pH 6.0 Ur Specific Rand 1.016 Urine Protein 30 H Urine Glucose (UA) NEGATIVE Urine Ketones NEGATIVE Urine Blood NEGATIVE Urine Nitrite NEGATIVE Ur Leukocyte Esterase NEGATIVE Urine WBC (Auto) 3 Urine RBC (Auto) 1 Blood Type Antibody Screen Assessment and Plan(PN) - Assessment and Plan (1) Acute blood loss anemia Is this a current diagnosis for this admission?: Yes (2) Placental abruption Qualifiers: Trimester: third trimester Qualified Code(s): O45.93 - Premature separation of placenta, unspecified, third trimester Is this a current diagnosis for this admission?: Yes (3) S/P primary low transverse Is this a current diagnosis for this admission?: Yes (4) Transfusion of blood during current hospitalization Is this a current diagnosis for this admission?: Yes Plan: Routine Post Op and PP orders, plan to get pt out of bed later on today, d/c cici armenta evening - Time Spent with Patient Time with patient: Less than 15 minutes Medications reviewed and adjusted accordingly: Yes - Disposition Anticipated Discharge: Home Within: within 48 hours
[2019-07-30 18:08] LABS: ABSOLUTE BASOPHILS # (AUTO) 0.1 10^3/uL (0.0-0.2); ABSOLUTE EOSINOPHILS # (AUTO) 0.1 10^3/uL (0.0-0.6); ABSOLUTE LYMPHOCYTES (AUTO) 1.9 10^3/uL (0.5-4.7); ABSOLUTE MONOCYTES (AUTO) 1.6 10^3/uL (0.1-1.4); ABSOLUTE NEUT (AUTO) 14.4 10^3/uL (1.7-8.2); BASOPHILS % (AUTO) 0.4 % (0-2); EOSINOPHILS % (AUTO) 0.4 % (0-6); HEMATOCRIT 26.7 % (36.0-47.0); LYMPHOCYTES % (AUTO) 10.5 % (13-45); MEAN CORPUSCULAR HEMOGLOBIN 27.2 pg (27.0-33.4); MEAN CORPUSCULAR HGB CONC 33.3 g/dL (32.0-36.0); MEAN CORPUSCULAR VOLUME 82 fl (80-97); MONOCYTES % (AUTO) 8.7 % (3-13); PLATELET COUNT 190 10^3/uL (150-450); RED BLOOD COUNT 3.27 10^6/uL (3.72-5.28); RED CELL DISTRIBUTION WIDTH 17.8 % (11.5-14.0); TOTAL CELLS COUNTED % (AUTO) 100 %; WHITE BLOOD COUNT 17.9 10^3/uL (4.0-10.5)
[2019-07-30 18:11] LABS: HEMOGLOBIN 8.9 g/dL (12.0-15.5)
[2019-07-31] MEDS: IBUPROFEN 800 MG TABLET PO SCH ×3 (06:07→22:39)
--- NOTE | 2019-07-31 10:39 | PDOC PROGRESS REPORT ---
Subjective-OB Progress Note for:: 07/31/19 Subjective: Doing well, does not feel like she needs to go home today, incisional pain, family at BS, baby in nursery and doing well, breast and bottle feeding eating and voiding well Physical Exam (OB) Vital Signs: Temp Pulse Resp BP Pulse Ox 97.8 F 70 18 127/75 H 98 07/31/19 08:06 07/31/19 08:06 07/31/19 08:06 07/31/19 08:06 07/31/19 08:06 Intake & Output 07/30/19 07/31/19 08/01/19 06:59 06:59 06:59 Intake Total 2200 Output Total 800 1750 Balance -800 450 - PIH/Pre-Eclampsia DTR's: 2 + Clonus: Negative Headache: Absent Epigastric Pain: No Visual Changes: No - Dressing Removed: No Incision: Dressing Closure Type: Pressure - Lochia Lochia Amount: Scant < 10 ml Lochia Color: Rubra/Red - Abdomen Description: Tender Hernia Present: No Fundal Description: Firm, Midline Fundal Height: u/u - u/2 Objective-Diagnostic Laboratory: 07/30/19 17:56 07/29/19 07/30/19 07/30/19 21:09 11:35 17:56 WBC 17.9 H RBC 3.27 L Hgb 8.9 L D Hct 26.7 L MCV 82 MCH 27.2 MCHC 33.3 RDW 17.8 H Plt Count 190 Seg Neutrophils % 80.0 H Urine Color YELLOW Urine Appearance CLEAR Urine pH 6.0 Ur Specific Filer 1.016 Urine Protein 30 H Urine Glucose (UA) NEGATIVE Urine Ketones NEGATIVE Urine Blood NEGATIVE Urine Nitrite NEGATIVE Ur Leukocyte Esterase NEGATIVE Urine WBC (Auto) 3 Urine RBC (Auto) 1 Blood Type B POSITIVE Antibody Screen NEGATIVE Assessment and Plan(PN) - Assessment and Plan (1) Transfusion of blood during current hospitalization Is this a current diagnosis for this admission?: Yes (2) Acute blood loss anemia Is this a current diagnosis for this admission?: Yes (3) S/P primary low transverse Is this a current diagnosis for this admission?: Yes - Time Spent with Patient Time with patient: Less than 15 minutes Medications reviewed and adjusted accordingly: Yes - Disposition Anticipated Discharge: Home Within: within 24 hours
[2019-07-31] MEDS: DOCUSATE SODIUM 100 MG CAPSULE PO SCH ×2 (11:02→19:10)
[2019-07-31] MEDS: PRENATAL VITAMIN W DHA CAPSULE PO SCH (11:03)
[2019-07-31] MEDS ORDERED: DIPHENHYDRAMINE HCL 25 MG CAPSULE PO PRN (12:00)
[2019-08-01] MEDS: IBUPROFEN 800 MG TABLET PO SCH ×2 (05:40→13:18)
[2019-08-01] MEDS: DOCUSATE SODIUM 100 MG CAPSULE PO SCH (09:57)
--- NOTE | 2019-08-01 11:20 | PDOC PROGRESS REPORT ---
Subjective-OB Progress Note for:: 08/01/19 Subjective: Sitting on side of bed, feeling alot better today, passing gas, eating well, more energy, baby is stable Physical Exam (OB) Vital Signs: Temp Pulse Resp BP Pulse Ox 98.1 F 76 18 124/79 100 08/01/19 10:44 08/01/19 10:44 08/01/19 10:44 08/01/19 10:44 08/01/19 10:44 Intake & Output 07/31/19 08/01/19 08/02/19 06:59 06:59 06:59 Intake Total 2200 640 Output Total 1750 Balance 450 640 - PIH/Pre-Eclampsia DTR's: 2 + Clonus: Negative Headache: Absent Epigastric Pain: No Visual Changes: No - Dressing Removed: Yes - Removed Previously Incision: Well Approximated Closure Type: Surgical Glue - Lochia Lochia Amount: Scant < 10 ml Lochia Color: Rubra/Red - Abdomen Description: Tender, Soft Hernia Present: No Fundal Description: Firm, Midline Fundal Height: u/u - u/2 Objective-Diagnostic Laboratory: 07/30/19 17:56 Assessment and Plan(PN) - Assessment and Plan (1) Transfusion of blood during current hospitalization Is this a current diagnosis for this admission?: Yes (2) Acute blood loss anemia Is this a current diagnosis for this admission?: Yes (3) S/P primary low transverse Is this a current diagnosis for this admission?: Yes - Time Spent with Patient Time with patient: Less than 15 minutes Medications reviewed and adjusted accordingly: Yes - Disposition Anticipated Discharge: Home Within: within 24 hours
--- NOTE | 2019-08-01 11:24 | PDOC DISCHARGE SUMMARY ---
Impression - Admit/DC Date/PCP Admission Date/Primary Care Provider: 07/29/19 19:47 Discharge Date: 08/01/19 - Discharge Diagnosis (1) Transfusion of blood during current hospitalization Is this a current diagnosis for this admission?: Yes (2) Acute blood loss anemia Is this a current diagnosis for this admission?: Yes (3) S/P primary low transverse Is this a current diagnosis for this admission?: Yes - Additional Information Resuscitation Status: Full Code Discharge Diet: As Tolerated, Regular Discharge Activity: Activity As Tolerated, No Driving, No Lifting Over 10 Pounds, No Lifting/Push/Pulling, Non-Ambulatory Child, Pelvic Rest Prescriptions: Ibuprofen [Motrin 800 mg Tablet] 800 mg PO Q8 #30 tablet Oxycodone HCl/Acetaminophen [Percocet 5-325 mg Tablet] 1 tab PO Q4H PRN #15 tab PRN Reason: Pain Scale Of 1 Home Medications: Ibuprofen [Motrin 800 mg Tablet] 800 mg PO Q8 #30 tablet 07/31/19 Oxycodone HCl/Acetaminophen [Percocet 5-325 mg Tablet] 1 tab PO Q4H PRN #15 tab 07/31/19 HPI Reason(s) for Admission: Ceasarean Section-Primary, Vaginal Bleading Admission Note: abruption Procedures: Ultrasound Intrapartum Procedure(s): : Low Cervical, Transverse Hospital Course Hospital Course: routine post op- Results Laboratory Results: WBC 17.9 10^3/uL (4.0-10.5) H 07/30/19 17:56 RBC 3.27 10^6/uL (3.72-5.28) L 07/30/19 17:56 Hgb 8.9 g/dL (12.0-15.5) L D 07/30/19 17:56 Hct 26.7 % (36.0-47.0) L 07/30/19 17:56 MCV 82 fl (80-97) 07/30/19 17:56 MCH 27.2 pg (27.0-33.4) 07/30/19 17:56 MCHC 33.3 g/dL (32.0-36.0) 07/30/19 17:56 RDW 17.8 % (11.5-14.0) H 07/30/19 17:56 Plt Count 190 10^3/uL (150-450) 07/30/19 17:56 Lymph % (Auto) 10.5 % (13-45) L 07/30/19 17:56 [place] % (Auto) 8.7 % (3-13) 07/30/19 17:56 Eos % (Auto) 0.4 % (0-6) 07/30/19 17:56 Baso % (Auto) 0.4 % (0-2) 07/30/19 17:56 Absolute Neuts (auto) 14.4 10^3/uL (1.7-8.2) H 07/30/19 17:56 Absolute Lymphs (auto) 1.9 10^3/uL (0.5-4.7) 07/30/19 17:56 Absolute Monos (auto) 1.6 10^3/uL (0.1-1.4) H 07/30/19 17:56 Absolute Eos (auto) 0.1 10^3/uL (0.0-0.6) 07/30/19 17:56 Absolute Basos (auto) 0.1 10^3/uL (0.0-0.2) 07/30/19 17:56 Seg Neutrophils % 80.0 % (42-78) H 07/30/19 17:56 PT 14.2 SEC (11.4-15.4) 07/29/19 21:09 INR 1.10 07/29/19 21:09 APTT 28.1 SEC (23.5-35.8) 07/29/19 21:09 Fibrinogen 323 mg/dL (209-497) 07/29/19 21:09 Urine Color YELLOW 07/30/19 11:35 Urine Appearance CLEAR 07/30/19 11:35 Urine pH 6.0 (5.0-9.0) 07/30/19 11:35 Ur Specific [place] 1.016 07/30/19 11:35 Urine Protein 30 mg/dL (NEGATIVE) H 07/30/19 11:35 Urine Glucose (UA) NEGATIVE mg/dL (NEGATIVE) 07/30/19 11:35 Urine Ketones NEGATIVE mg/dL (NEGATIVE) 07/30/19 11:35 Urine Blood NEGATIVE (NEGATIVE) 07/30/19 11:35 Urine Nitrite NEGATIVE (NEGATIVE) 07/30/19 11:35 Urine Bilirubin NEGATIVE (NEGATIVE) 07/30/19 11:35 Urine Urobilinogen NEGATIVE mg/dL (<2.0) 07/30/19 11:35 Ur Leukocyte Esterase NEGATIVE (NEGATIVE) 07/30/19 11:35 Urine WBC (Auto) 3 /HPF 07/30/19 11:35 Urine RBC (Auto) 1 /HPF 07/30/19 11:35 Squamous Epi Cells Auto 1 /HPF 07/30/19 11:35 Urine Mucus (Auto) OCC /LPF 07/30/19 11:35 Urine Ascorbic Acid NEGATIVE (NEGATIVE) 07/30/19 11:35 Urine Opiates Screen UNCONFIRMED POSITIVE 07/30/19 11:35 Urine Methadone Screen NEGATIVE 07/30/19 11:35 Ur Barbiturates Screen NEGATIVE 07/30/19 11:35 Ur Phencyclidine Scrn NEGATIVE 07/30/19 11:35 Ur Amphetamines Screen NEGATIVE 07/30/19 11:35 U Benzodiazepines Scrn NEGATIVE 07/30/19 11:35 Urine Cocaine Screen NEGATIVE 07/30/19 11:35 U Marijuana (THC) Screen NEGATIVE 07/30/19 11:35 RPR NONREACTIVE (NONREACTIVE) 07/29/19 21:09 Blood Type B POSITIVE 07/29/19 21:09 Antibody Screen NEGATIVE 07/29/19 21:09 Crossmatch See Detail 07/29/19 21:09 Plan Health Concerns: anemia Plan of Treatment: discharge home, rev S&S to report Goals: no complications Time Spent: Less than 30 Minutes
[2019-08-01] MEDS: PRENATAL VITAMIN W DHA CAPSULE PO SCH (11:50)
[2019-08-01 11:51] VITALS: BP 124/79
--- NOTE | 2019-08-03 01:47 | Delivery Summary ---
Del Sum A-C Datetime Report Generated by CPN: 08/03/2019 01:47 DELIVERY PERSONNEL DELIVERY PERSONNEL: [id number] Delivery Doctor:: Lillian Wallace MD APPEALS REFEREE:: Charla Saucedo CRNA Call Center Analyst:: Justino Willson, RN Reimbursement Rep/ADJUNCT COMMUNICATIONS FACULTY MEMBER: Chayo Green, ST Reimbursement Rep/ADJUNCT COMMUNICATIONS FACULTY MEMBER: Erna Bateman, ST MATERNAL INFORMATION Delivery Anesthesia: General Medications After Delivery: Pitocin Bolus-Please Comment Meds After Delivery Comment: Pitocin 40 units given IV in LR Bag 1,000 mL in OR per verbal order from Dr. Wallace Maternal Complications: Other Complication Details: STAT abruption LABOR SUMMARY EDC: 09/14/2019 00:00 No. Babies in Womb: 1 Attempted: No Labor Anesthesia: General LABOR INFORMATION Reason for Induction: Not Applicable Oxytocin: N/A Group B Beta Strep: Unknown Steroids Given: None Reason Steroids Not Administered: Not Applicable MEMBRANES Membranes Rupture Method: Artificial Rupture of Membranes: 07/29/2019 20:16 Length of Rupture (hr): 0.02 Amniotic Fluid Color: Clear Amniotic Fluid Amount: Moderate Amniotic Fluid Odor: Normal STAGES OF LABOR Stage 3 hr: 0 Stage 3 min: 1 VAGINAL DELIVERY Episiotomy: None Laceration #1: None Laceration Extension #1: N/A Laceration Repair: Not Applicable Sponge Count Correct: N/A Sharps Count Correct: N/A CSECTION DELIVERY Primary Indication: Stat abruption Secondary Indication: N/A CSection Urgency: Emergency CSection Incidence: Primary Labor: No Labor Elective: Nonelective CSection Incision: Lower Uterine Transverse BABY A INFORMATION Delivery Date/Time: 07/29/2019 20:17 Method of Delivery: Nurse Controlled Delivery: No Born in Route : No : N/A Forceps: N/A Vacuum Extraction: N/A Shoulder Dystocia : No PRESENTATION/POSITION BABY A Presentation: Cephalic Cephalic Presentation: Vertex Vertex Position: Left Occipital Anterior Breech Presentation: N/A PLACENTA INFORMATION BABY A Placenta Delivery Time : 07/29/2019 20:18 Placenta Method of Delivery: Manual Removal Placenta Status: Delivered SCORES BABY A Heart Rate 1 min: >100 bpm Resp Effort 1 min: Good Cry Reflex Irritability 1 min: Cough or Sneeze or Pulls Away Muscle Tone 1 min: Some Flexion of Extremities Color 1 min: Blue/Pale SCORE 1 MIN: 7 Heart Rate 5 min: >100 bpm Resp Effort 5 min: Good Cry Reflex Irritability 5 min: Cough or Sneeze or Pulls Away Muscle Tone 5 min: Active Motion Color 5 min: Body [place], Extremities Blue SCORE 5 MIN: 9 INFANT INFORMATION BABY A Gestational Age at Delivery: 33.2 Gestational Status: - <34 Weeks Infant Outcome : Liveborn Condition : Stable Infant Sex: Female IDENTIFICATION BABY A Verification Date/Time: 07/30/2019 03:16 ID Band Number: [id number] Mother's Name Verified: Yes Infant RN Verifying Infant: K Demetris, RN/ R Eugenio, RN WEIGHT/LENGTH BABY A Birthweight (gm): 2040 Infant Weight (lb): 4 Weight (oz): 8 Length (in): 17.00 Length (cm): 43.18 CORD INFORMATION BABY A No. Cord Vessels: 3 Nuchal Cord : N/A Cord Blood Taken: Yes-For Storage (Mom's Blood type +) Infant Suction: Mouth; Nose ASSESSMENT BABY A Skin to Skin: No BABY B INFORMATION : N/A
== END 2019-08-01 14:33 | disposition home or self-care (01) | DRG 786 ==
LOC: LC 19:24 → LR 19:47 → 2S 22:16
PROVIDERS: ADMIT Obstetrics & Gynecology; ATTEND Obstetrics & Gynecology
PROC: 10D00Z1 Extraction of Products of Conception, Low, Open Approach (ICD-10-PCS; principal; 2019-07-29)
PROC: 30233N1 Transfusion of Nonautologous Red Blood Cells into Peripheral Vein, Percutaneous Approach (ICD-10-PCS; 2019-07-30)
DX: O60.14X0 Preterm labor third trimester with preterm delivery third trimester, not applicable or unspecified (principal); O45.93 Premature separation of placenta, unspecified, third trimester; D62 Acute posthemorrhagic anemia; O90.81 Anemia of the puerperium; Z3A.39 39 weeks gestation of pregnancy; Z37.0 Single live birth; Z3A.33 33 weeks gestation of pregnancy
CPT/HCPCS: 1961; 36415; 36430; 80307; 81001; 85025; 85027; 85384; 85610; 85730; 86592; 86850; 86900; 86901; 86920; 86922; 88307; 94760; 94799; 99140; J0131; J0330; J0690; J1170; J1756; J1885; J2210; J2370; J2405; J2590; J2704; J3010; J3490; J7120; P9016

== ENCOUNTER 2019-08-04 15:38 | Inpatient (IN) | payer MEDICAID ==
[2019-08-04] MEDS ORDERED: RINGERS SOLUTION,LACTATED 1,000 ML IV PRN ×2 (16:09→17:00)
[2019-08-04 16:30] LABS: APPEARANCE,URINE CLEAR; BILIRUBIN,URINE NEGATIVE (NEGATIVE); COLOR,URINE YELLOW; GLUCOSE, URINE NEGATIVE (NEGATIVE); KETONES,URINE NEGATIVE (NEGATIVE); LEUKOCYTE ESTERASE,URINE MODERATE (NEGATIVE); NITRITE,URINE NEGATIVE (NEGATIVE); PROTEIN,URINE NEGATIVE (NEGATIVE); URINE SPECIFIC GRAVITY 1.004; UROBILINOGEN,URINE NEGATIVE mg/dL (<2.0)
[2019-08-04 16:43] LABS: ABSOLUTE BASOPHILS # (AUTO) 0.1 10^3/uL (0.0-0.2); ABSOLUTE EOSINOPHILS # (AUTO) 0.2 10^3/uL (0.0-0.6); ABSOLUTE LYMPHOCYTES (AUTO) 2.3 10^3/uL (0.5-4.7); ABSOLUTE MONOCYTES (AUTO) 0.7 10^3/uL (0.1-1.4); ABSOLUTE NEUT (AUTO) 6.9 10^3/uL (1.7-8.2); BASOPHILS % (AUTO) 0.5 % (0-2); EOSINOPHILS % (AUTO) 2.2 % (0-6); HEMATOCRIT 29.1 % (36.0-47.0); HEMOGLOBIN 9.7 g/dL (12.0-15.5); LYMPHOCYTES % (AUTO) 22.4 % (13-45); MEAN CORPUSCULAR HEMOGLOBIN 27.8 pg (27.0-33.4); MEAN CORPUSCULAR HGB CONC 33.4 g/dL (32.0-36.0); MEAN CORPUSCULAR VOLUME 83 fl (80-97); MONOCYTES % (AUTO) 6.7 % (3-13); PLATELET COUNT 327 10^3/uL (150-450); SEGMENTED NEUTROPHILS % (AUTO) 68.2 % (42-78); TOTAL CELLS COUNTED % (AUTO) 100 %; WHITE BLOOD COUNT 10.2 10^3/uL (4.0-10.5)
[2019-08-04 16:43] LABS: URINE AMPHETAMINES SCREEN NEGATIVE; URINE BARBITURATES SCREEN NEGATIVE; URINE BENZODIAZEPINES SCREEN NEGATIVE; URINE COCAINE SCREEN NEGATIVE; URINE MARIJUANA (THC) SCREEN NEGATIVE; URINE METHADONE SCREEN NEGATIVE; URINE PHENCYCLIDINE SCREEN NEGATIVE
[2019-08-04 16:47] LABS: UR PRO/CREAT RATIO RESULT 0.5 mg/mg (0.0-0.2); URINE CREATININE 45.6 mg/dL (16-327)
[2019-08-04] MEDS ORDERED: OXYCODONE-ACETAMINOPHEN 5-325 MG TABLET PO PRN ×3 (16:56→17:00)
[2019-08-04 16:58] LABS: ALBUMIN 3.6 g/dL (3.5-5.0); ALKALINE PHOSPHATASE 127 U/L (38-126); ANION GAP 9 (5-19); ASPARTATE AMINO TRANSFERASE 28 U/L (14-36); BILIRUBIN,TOTAL 0.4 mg/dL (0.2-1.3); BLOOD UREA NITROGEN 7 mg/dL (7-20); CALCIUM 8.6 mg/dL (8.4-10.2); CARBON DIOXIDE 22 mmol/L (22-30); CHLORIDE 106 mmol/L (98-107); GLUCOSE 77 mg/dL (75-110); POTASSIUM 3.8 mmol/L (3.6-5.0); TOTAL PROTEIN 7.1 g/dL (6.3-8.2); URIC ACID 7.9 mg/dL (2.5-6.2)
[2019-08-04] MEDS ORDERED: MEASLES,MUMPS&RUBELLA VACC/PF 0.5 ML VIAL SUBCUT PRN (17:00)
[2019-08-04] MEDS ORDERED: OXYTOCIN/0.9 % SODIUM CHLORIDE 30 UNIT/500 ML RTUINJ IV PRN (17:00)
[2019-08-04] MEDS ORDERED: PROMETHAZINE HCL INJ 25 MG/1 ML VIAL IV PRN (17:00)
[2019-08-04] MEDS ORDERED: SIMETHICONE 80 MG TAB.CHEW PO PRN (17:00)
[2019-08-04] MEDS ORDERED: ACETAMINOPHEN 325 MG TABLET PO PRN (17:00)
[2019-08-04] MEDS ORDERED: MAGNESIUM SULFATE 4 GM/100 ML RTUPB IV ONE ×2 (17:01→17:06)
[2019-08-04] MEDS ORDERED: MAGNESIUM SULFATE 20 GM/500 ML RTUINJ IV ONE (17:01)
[2019-08-04] MEDS: MAGNESIUM SULFATE 20 GM/500 ML RTUINJ IV PRN (18:14)
[2019-08-04] MEDS ORDERED: HYDRALAZINE HCL INJ/PF 20 MG/1 ML SDV IV ONE (20:03)
[2019-08-04] MEDS ORDERED: HYDRALAZINE HCL INJ/PF 20 MG/1 ML SDV ONE (20:04)
--- NOTE | 2019-08-04 20:48 | Admission Physical ---
Datetime Report Generated by CPN: 08/04/2019 20:48 CURRENT ADMISSION Chief Complaint: Signs/Symptoms Gestational HTN Indication for Induction: Other Indication for Induction- Other: Placental abruption Admit Impression : Obstetrical Complication Admit Plan: Admit to Unit; Observation/Evaluation ALLERGIES Medication Allergies: No Medication Allergies: latex/SV/hives swellin (08/04/2019) Latex: Latex Allergies Food Allergies: none Environmental Allergies: none OBSTETRICAL HISTORY EDC: 09/14/2019 00:00 : 6 Para: 4 Term: 4 : 0 SAB: 1 Livin Cesareans: 0 Gestational Diabetes: No Rh Sensitization: No Incompetent Cervix: No PRERNA: No Infertility: No ART Treatment: No Uterine Anomaly: No IUGR: No Hx Previous C/S: No Macrosomia: No Hx Loss/Stillborn: Yes PIH: No Hx : No Placenta Previa/Abruption: No Depression/PP Depression: Yes PTL/PROM: No Post Hemorrhage: No Current Procedures: Ultrasound Obstetrical History Comments: 2005 G6- current SEE RECORDS Alcohol: No Marijuana : No Cocaine: No Other Illicit Drugs: No Cigarettes: Current Everyday Smoker. [id number] MEDICAL HISTORY Diabetes: No Blood Transfusion: Yes Pulmonary Disease (Asthma, TB): No Breast Disease: No Hypertension: Yes [employer] Surgery: No Heart Disease: No Hosp/Surgery: Yes Autoimmune Disorder: No Anesthetic Complications: No Kidney Disease: No Abnormal Pap Smear: Yes Neuro/Epilepsy: No Psychiatric Disorders: No Other Medical Diseases: No Hepatitis/Liver Disease: No Significant Family History: No Varicosities/Phlebitis: No Trauma/Violence : No Thyroid Dysfunction: No Medical History Comments: wisdom teeth, INFECTIOUS HISTORY Gonorrhea: No Genital Herpes: No Chlamydia: No Tuberculosis: No Syphilis: No Hepatitis: No HIV/AIDS Exposure: No Rash or Viral Illness: No HPV: No PHYSICAL EXAM General: Normal HEENT: Normal Neurologic: Normal Thyroid: Deferred Heart: Normal Lungs: Normal Breast: Deferred Back: Normal Abdomen: Normal Genitourinary Exam: Normal Extremities: Normal DTRs: Normal Pelvic Type: Adequate Vital Signs: Reviewed VAGINAL EXAM Dilatation: 5 Effacement: 80 Station: -3 MEMBRANES Membranes: Ruptured Amniotic Fluid Color: Bloody FETUS A EGA: 34.1 Monitoring: External US FHR- Baseline: 125 Variability: Moderate 6-25bpm Accelerations: 15X15 Decelerations: Variable FHR Category: Category II Presentation: Vertex Admit Comment: 34yo presents from the office with severe range BPs. She is 6 days pp from Emergent section due to placental abruption at 33wks. baby is still in NICU. She continues to have severe range and high mild range BPs. LSTs are normal but Uric acid is 7.9 and P:C ratio is 0.5. THis is c/w pp pree and will start mag sulfate likely for 24 hours. then start on BP meds. All questions were reviewed and we reviewed that she may need to be admitted for 3 plus days to ensure BP control prior todischarge. She verbalized understanding. Review of BPs notes h/o GHTN but does not appear to have CHTN. PLANS FOR LABOR AND DELIVERY Feeding Preference: Both Benefit of Breast Feed Discussed: Yes Circumcision: N/A INFORMED CONSENT Informed Consent Obtained: Risks, Benefits and Alternatives Discussed Signature: with User ID: [email or web address]
[2019-08-05] MEDS ORDERED: MAGNESIUM SULFATE 20 GM/500 ML RTUINJ IV ONE (04:12)
[2019-08-05] MEDS: MAGNESIUM SULFATE 20 GM/500 ML RTUINJ IV PRN (04:14)
[2019-08-05] MEDS ORDERED: HYDROCHLOROTHIAZIDE 12.5 MG TABLET PO SCH (10:00)
[2019-08-05] MEDS ORDERED: METOPROLOL TARTRATE 50 MG TABLET PO SCH (12:15)
--- NOTE | 2019-08-05 12:57 | PDOC PROGRESS REPORT ---
Subjective Progress Note for:: 08/05/19 Subjective:: Feels better today. Since magnesilum started she feels "heavy" but otherwise no other complaints. NO ESCOBEDO, CP, SOB, RUQ pain, vision changes, or n/v She is eating well. Pain well controled. Voiding good output. Not resting well, feels sad d/t baby in NICU and wonders if medication for depression may help. Reason For Visit: Physical Exam - Physical Exam Vital Signs: Intake & Output 08/04/19 08/05/19 08/06/19 06:59 06:59 06:59 Intake Total 500 Balance 500 Weight 71.4 kg General appearance: PRESENT: no acute distress Respiratory exam: PRESENT: clear to auscultation tamanna Cardiovascular exam: PRESENT: RRR, +S1, +S2 GI/Abdominal exam: PRESENT: normal bowel sounds, soft - Nontender Extremities exam: PRESENT: full ROM. ABSENT: calf tenderness, clubbing, pedal edema Neurological exam: PRESENT: alert, awake, oriented to person, oriented to place, oriented to time, oriented to situation, CN II-XII grossly intact. ABSENT: motor sensory deficit Result Laboratory Results: 08/04/19 16:12 08/04/19 16:12 08/04/19 08/04/19 08/04/19 15:54 16:12 16:12 WBC 10.2 RBC 3.50 L Hgb 9.7 L Hct 29.1 L MCV 83 MCH 27.8 MCHC 33.4 RDW 19.0 H Plt Count 327 Seg Neutrophils % 68.2 Sodium 136.6 L Potassium 3.8 Chloride 106 Carbon Dioxide 22 Anion Gap 9 BUN 7 Creatinine 0.61 Est GFR ( Amer) > 60 Glucose 77 Uric Acid 7.9 H Calcium 8.6 Total Bilirubin 0.4 AST 28 Alkaline Phosphatase 127 H Total Protein 7.1 Albumin 3.6 Urine Color YELLOW Urine Appearance CLEAR Urine pH 7.0 Ur Specific [place] 1.004 Urine Protein NEGATIVE Urine Glucose (UA) NEGATIVE Urine Ketones NEGATIVE Urine Blood LARGE H Urine Nitrite NEGATIVE Ur Leukocyte Esterase MODERATE H Urine WBC (Auto) 8 Urine RBC (Auto) 20 Blood Type Antibody Screen 08/04/19 16:12 WBC RBC Hgb Hct MCV MCH MCHC RDW Plt Count Seg Neutrophils % Sodium Potassium Chloride Carbon Dioxide Anion Gap BUN Creatinine Est GFR ( Amer) Glucose Uric Acid Calcium Total Bilirubin AST Alkaline Phosphatase Total Protein Albumin Urine Color Urine Appearance Urine pH Ur Specific [place] Urine Protein Urine Glucose (UA) Urine Ketones Urine Blood Urine Nitrite Ur Leukocyte Esterase Urine WBC (Auto) Urine RBC (Auto) Blood Type B POSITIVE Antibody Screen NEGATIVE Assessment & Plan - Time Time Spent with patient: 15-24 minutes Anticipated discharge: Home Within: within 24 hours Disposition: Improving blood pressures with magnesium sulfate drip and oral antihypertensives. - Plan Summary Plan Summary: S/p PCS after placental abruption, now admitted with preeclampsia by severe range blood pressures and P:C 0.5 -VS with elevated b/p today. No severes -Exam negative -Good UOP -D/c b/p and need for oral antihypertensives now and outpatient -Depressed mood and poor sleep. Feels overwhelmed. POst depression: will begin medication. Is breast feeding but zoloft not on 2 Minutes $4 list and she has some financial hardship. Will begin Nortiptyline 25mg BID -WIll d/c Mag this PM and if b/p stable on PO meds and no PIH symptoms: likely discharge in AM
[2019-08-05] MEDS: METOPROLOL TARTRATE 50 MG TABLET PO SCH ×2 (13:00→22:09)
[2019-08-05] MEDS: PRENATAL VITAMIN W DHA CAPSULE PO SCH (17:22)
[2019-08-05] MEDS: DOCUSATE SODIUM 100 MG CAPSULE PO SCH ×2 (17:22→22:13)
[2019-08-05 17:56] VITALS: BP 134/71
[2019-08-05] MEDS ORDERED: ZOLPIDEM TARTRATE 5 MG TABLET PO SCH (22:00)
[2019-08-05] MEDS: IBUPROFEN 800 MG TABLET PO SCH (22:12)
[2019-08-05] MEDS: NORTRIPTYLINE HCL 25 MG CAPSULE PO SCH (22:12)
[2019-08-06] MEDS: IBUPROFEN 800 MG TABLET PO SCH (06:07)
--- NOTE | 2019-08-06 07:06 | PDOC DISCHARGE SUMMARY ---
Impression - Admit/DC Date/PCP Admission Date/Primary Care Provider: 08/04/19 16:53 Discharge Date: 08/06/19 - Discharge Diagnosis (1) Pre-eclampsia in period Is this a current diagnosis for this admission?: Yes (2) S/P primary low transverse Is this a current diagnosis for this admission?: Yes - Assessment Summary: Admitted for preeclampsia. ON mag sulfate for 24 hours IV. Started on oral antihypertensives. B/P no severe range. Good urinary output. NO PIH symptoms . Exam negative Plan for d/c on Metoprolol 50 mg BID PO. Rx sent. - Additional Information Discharge Diet: As Tolerated Discharge Activity: Activity As Tolerated Prescriptions: Metoprolol Tartrate [Lopressor 50 mg Tablet] 50 mg PO Q12 #60 tablet Home Medications: Oxycodone HCl/Acetaminophen [Percocet 5-325 mg Tablet] 1 tab PO Q4H PRN #15 tab 07/31/19 Pnv No.95/Ferrous Fum/Folic AC [ [place]] 1 tab PO DAILY 08/04/19 Metoprolol Tartrate [Lopressor 50 mg Tablet] 50 mg PO Q12 #60 tablet 08/06/19 History of Present Illiness History of Present Illness: GEENA ESTEVEZ is a 34 year old female Physical Exam - Physical Exam Vital Signs: Temp Pulse Resp BP Pulse Ox 97.7 F 90 16 134/71 H 99 08/04/19 18:00 08/04/19 18:00 08/04/19 18:00 08/04/19 18:00 08/04/19 18:00 Intake & Output 08/05/19 08/06/19 08/07/19 06:59 06:59 06:59 Intake Total 500 Balance 500 Weight 71.4 kg Results Laboratory Results: WBC 10.2 10^3/uL (4.0-10.5) 08/04/19 16:12 RBC 3.50 10^6/uL (3.72-5.28) L 08/04/19 16:12 Hgb 9.7 g/dL (12.0-15.5) L 08/04/19 16:12 Hct 29.1 % (36.0-47.0) L 08/04/19 16:12 MCV 83 fl (80-97) 08/04/19 16:12 MCH 27.8 pg (27.0-33.4) 08/04/19 16:12 MCHC 33.4 g/dL (32.0-36.0) 08/04/19 16:12 RDW 19.0 % (11.5-14.0) H 08/04/19 16:12 Plt Count 327 10^3/uL (150-450) 08/04/19 16:12 Lymph % (Auto) 22.4 % (13-45) 08/04/19 16:12 [place] % (Auto) 6.7 % (3-13) 08/04/19 16:12 Eos % (Auto) 2.2 % (0-6) 08/04/19 16:12 Baso % (Auto) 0.5 % (0-2) 08/04/19 16:12 Absolute Neuts (auto) 6.9 10^3/uL (1.7-8.2) 08/04/19 16:12 Absolute Lymphs (auto) 2.3 10^3/uL (0.5-4.7) 08/04/19 16:12 Absolute Monos (auto) 0.7 10^3/uL (0.1-1.4) 08/04/19 16:12 Absolute Eos (auto) 0.2 10^3/uL (0.0-0.6) 08/04/19 16:12 Absolute Basos (auto) 0.1 10^3/uL (0.0-0.2) 08/04/19 16:12 Seg Neutrophils % 68.2 % (42-78) 08/04/19 16:12 Sodium 136.6 mmol/L (137-145) L 08/04/19 16:12 Potassium 3.8 mmol/L (3.6-5.0) 08/04/19 16:12 Chloride 106 mmol/L (98-107) 08/04/19 16:12 Carbon Dioxide 22 mmol/L (22-30) 08/04/19 16:12 Anion Gap 9 (5-19) 08/04/19 16:12 BUN 7 mg/dL (7-20) 08/04/19 16:12 Creatinine 0.61 mg/dL (0.52-1.25) 08/04/19 16:12 Est GFR ( Amer) > 60 (>60) 08/04/19 16:12 Est GFR (MDRD) Non-Af > 60 (>60) 08/04/19 16:12 Glucose 77 mg/dL (75-110) 08/04/19 16:12 Uric Acid 7.9 mg/dL (2.5-6.2) H 08/04/19 16:12 Calcium 8.6 mg/dL (8.4-10.2) 08/04/19 16:12 Total Bilirubin 0.4 mg/dL (0.2-1.3) 08/04/19 16:12 Direct Bilirubin 0.0 mg/dL (0.0-0.4) 08/04/19 16:12 Neonat Total Bilirubin Not Reportable 08/04/19 16:12 Neonat Direct Bilirubin Not Reportable 08/04/19 16:12 Neonat Indirect Bili Not Reportable 08/04/19 16:12 AST 28 U/L (14-36) 08/04/19 16:12 ALT 19 U/L (<35) 08/04/19 16:12 Alkaline Phosphatase 127 U/L (38-126) H 08/04/19 16:12 Total Protein 7.1 g/dL (6.3-8.2) 08/04/19 16:12 Albumin 3.6 g/dL (3.5-5.0) 08/04/19 16:12 Urine Color YELLOW 08/04/19 15:54 Urine Appearance CLEAR 08/04/19 15:54 Urine pH 7.0 (5.0-9.0) 08/04/19 15:54 Ur Specific [place] 1.004 08/04/19 15:54 Urine Protein NEGATIVE mg/dL (NEGATIVE) 08/04/19 15:54 Urine Glucose (UA) NEGATIVE mg/dL (NEGATIVE) 08/04/19 15:54 Urine Ketones NEGATIVE mg/dL (NEGATIVE) 08/04/19 15:54 Urine Blood LARGE (NEGATIVE) H 08/04/19 15:54 Urine Nitrite NEGATIVE (NEGATIVE) 08/04/19 15:54 Urine Bilirubin NEGATIVE (NEGATIVE) 08/04/19 15:54 Urine Urobilinogen NEGATIVE mg/dL (<2.0) 08/04/19 15:54 Ur Leukocyte Esterase MODERATE (NEGATIVE) H 08/04/19 15:54 Urine WBC (Auto) 8 /HPF 08/04/19 15:54 Urine RBC (Auto) 20 /HPF 08/04/19 15:54 Urine Bacteria (Auto) TRACE /HPF 08/04/19 15:54 Squamous Epi Cells Auto 2 /HPF 08/04/19 15:54 Urine Creatinine 45.6 mg/dL (16-327) 08/04/19 15:54 Protein/Creatinin Ratio 0.5 mg/mg (0.0-0.2) H 08/04/19 15:54 Urine Total Protein 21.0 mg/dL (<12) H 08/04/19 15:54 Urine Ascorbic Acid NEGATIVE (NEGATIVE) 08/04/19 15:54 Urine Opiates Screen NEGATIVE 08/04/19 15:54 Urine Methadone Screen NEGATIVE 08/04/19 15:54 Ur Barbiturates Screen NEGATIVE 08/04/19 15:54 Ur Phencyclidine Scrn NEGATIVE 08/04/19 15:54 Ur Amphetamines Screen NEGATIVE 08/04/19 15:54 U Benzodiazepines Scrn NEGATIVE 08/04/19 15:54 Urine Cocaine Screen NEGATIVE 08/04/19 15:54 U Marijuana (THC) Screen NEGATIVE 08/04/19 15:54 Blood Type B POSITIVE 08/04/19 16:12 Antibody Screen NEGATIVE 08/04/19 16:12 Stroke Is this a Stroke Patient?: No Acute Heart Failure - Is this a Heart Failure Patient?: No
[2019-08-06] MEDS: METOPROLOL TARTRATE 50 MG TABLET PO SCH (09:53)
[2019-08-06] MEDS: DOCUSATE SODIUM 100 MG CAPSULE PO SCH (09:54)
[2019-08-06] MEDS: NORTRIPTYLINE HCL 25 MG CAPSULE PO SCH (09:54)
[2019-08-06] MEDS: PRENATAL VITAMIN W DHA CAPSULE PO SCH (09:54)
== END 2019-08-06 10:30 | disposition home or self-care (01) | DRG 776 ==
LOC: LC 15:38 → LR 16:53 → 2S 08-05 17:46 → LR 08-05 17:54
PROVIDERS: ADMIT Student in an Organized Health Care Education/Training Program; ATTEND Student in an Organized Health Care Education/Training Program
DX: O14.15 Severe pre-eclampsia, complicating the puerperium (principal); O99.335 Smoking (tobacco) complicating the puerperium; F17.200 Nicotine dependence, unspecified, uncomplicated; Z91.040 Latex allergy status
CPT/HCPCS: 36415; 80053; 80307; 81001; 82570; 84156; 84550; 85025; 86850; 86900; 86901; J0360; J3475; J3490